=== PATIENT | female | born 1995 | race Caucasian/White ===

== ENCOUNTER 2017-12-31 18:27 | Inpatient (IN) ==
[2017-12-31] MEDS ORDERED: *HR* FentaNYL (PF) 100 MCG/2 ML VIAL IVP ONE ×2 (18:43→20:05)
[2017-12-31] MEDS ORDERED: Ondansetron 4 MG/2 ML VIAL IVP ONE (18:43)
[2017-12-31] MEDS ORDERED: 0.9 % Sodium Chloride 1,000 ML IVC ONE (18:43)
--- NOTE | 2017-12-31 18:47 | Emergency Department Note ---
Disposition Clinical Impression: Pyelonephritis Disposition: Admitted As Inpatient Condition: Good Forms: ED Satisfaction Letter, Work/School Release Time of Disposition: 20:16 General Adult HPI - General Chief complaint: ED General Medical Stated complaint: UTI, worsening pain Time Seen by Provider: 12/31/17 18:35 Source: patient, family Limitations: no limitations - History of Present Illness HPI Narrative: History of present illness: 2-year-old female who presents the emergency department with flank pain and fever and unable to keep her medicine down. Patient has had pyelonephritis in the past. She was seen last night in the emergency department at [facility]. She said "he did not really give me the time to listen to me". They put her on antibiotics and sent her home. She said she has been able to keep anything down. She was prescribed Cipro. Patient states her fevers have been Tmax 104.5 and have not gone below 99. Patient says she is an 8 out of 10 pain and her nauseated. Denies shortness breath chest pain vaginal discharge headache photophobia or neck stiffness. Pain Scale: 9 - Related Data Home Medications Medication Instructions Recorded Confirmed Albuterol Sulfate [Albuterol 2 puff IH Q4HR PRN 12/31/17 12/31/17 Inhaler] Previous Rx's Medication Instructions Recorded Ciprofloxacin [Cipro] 500 mg PO BID #20 tablet 12/30/17 Ondansetron ODT [Zofran ODT] 4 mg SL Q6HR #10 tab.rapdis 12/30/17 Allergies Allergy/AdvReac Type Severity Reaction Status Date / Time Amoxicillin Allergy See Verified 08/30/17 15:35 Comments latex Allergy See Verified 08/30/17 15:35 Comments All systems ED: reviewed and negative except as stated. Constitutional: Reports: fever, chills Genitourinary: Reports: dysuria Musculoskeletal: Reports: back pain Past Medical History - Past Medical History Attestation: Yes The following information was validated with the patient. 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 - Social History Smoking Status: Current every day smoker Smokeless Tobacco Status: No Alcohol use: Reports: occasionally Drug use: Reports: none Physical Exam - General Limitations: no limitations General appearance: alert, in distress - Head Head exam: atraumatic, normocephalic - Eye Eye exam: Present: normal appearance, PERRL, EOMI - ENT ENT exam: normal exam, normal oropharynx - Neck Neck exam: Present: normal inspection, full ROM - Chest Chest inspection: Present: normal inspection, symmetric chest wall rise - Respiratory Respiratory exam: Present: normal lung sounds bilaterally - Cardiovascular Cardiovascular exam: Present: normal rhythm, tachycardia - Abdominal Exam Abdominal exam: Present: soft, Non-Tender - Extremities Exam Extremities exam: Present: normal inspection, full ROM - Expanded Lower Extremity Exam Neurovascular/Tendon exam: Present: normal capillary refill Gait: observed and normal - Back Exam Back exam: Present: normal inspection, full ROM, CVA tenderness (L). Absent: CVA tenderness (R) - Neurological Exam Neurological exam: Present: alert, oriented X3 - Psychiatric Psychiatric exam: Present: normal affect, normal mood - Skin Skin exam: Present: warm, dry, intact Course - Reevaluation(s) Reevaluation #1: Patient has left CVAT exquisitely. Is tachycardic at rest. Patient likely has pyelonephritis and is unable to keep her Cipro down. Patient will get screening labs noncontrast stone studies CT to exclude possibility of perinephric abscess be started on IV Rocephin be given fentanyl and Zofran and 1 L bolus. Admission anticipated, disposition pending Time: 18:47 Reevaluation #2: ED workup is complete. Abdominal pelvic CT noncontrast of her radiology shows perinephric stranding on the left consistent with pyelonephritis. Lactate level requested by hospitalist was within normal limits discussed the case with the hospitalist Dr. ABEBE. Patient was requested get 2 g IV Rocephin which is being given. Patient stable for admission. Time: 20:16 Vital Signs Temperature 99.2 F 12/31/17 18:28 Pulse Rate 123 12/31/17 18:28 Respiratory Rate 16 12/31/17 18:28 Blood Pressure 129/76 12/31/17 18:28 O2 Sat by Pulse Oximetry 96 12/31/17 18:28 Temperature 99.2 F 12/31/17 18:28 Pulse Rate 123 12/31/17 18:28 Respiratory Rate 16 12/31/17 18:28 Blood Pressure 129/76 12/31/17 18:28 O2 Sat by Pulse Oximetry 96 12/31/17 18:28 Oxygen Delivery Oxygen Delivery Room Air Medical Decision Making - Lab Data Result diagrams: 12/31/17 18:55 12/31/17 18:55 Lab Results 12/31/17 12/31/17 12/31/17 Range/Units 18:55 18:55 19:28 WBC 16.5 H (4.3-11.1) K/mcL RBC 4.42 (3.82-4.97) M/mcL Hgb 14.7 (11.5-15.4) g/dL Hct 41.9 (35.3-44.9) % MCV 94.8 (83.0-100.0) fL MCH 33.3 (28.0-33.3) pg MCHC 35.1 (31.6-35.5) g/dL RDW 12.4 (11.5-14.5) % Plt Count 337 (140-400) K/mcL MPV 9.1 L (9.4-12.4) fL Immature Gran % 0.5 (0-4) % Seg Neutrophils % 74.4 % Lymphocytes % 17.9 % Monocytes % 7.0 % Eosinophils % 0.0 % Basophils % 0.2 % Neutrophils # 12.3 H (1.6-8.9) K/mcL Lymphocytes # 3.0 (0.6-4.6) K/mcL Monocytes # 1.2 (0.0-1.3) K/mcL Eosinophils # 0.0 (0.0-0.6) K/mcL Basophils # 0.0 (0.0-0.2) K/mcL Sodium 132 L (136-145) mEq/L Potassium 3.4 L (3.5-5.1) mEq/L Chloride 97 L (98-107) mEq/L Carbon Dioxide 27 (23-29) mEq/L BUN 6 (6-20) mg/dL Creatinine 0.68 (0.60-1.20) mg/dL Est GFR ( Amer) > 60 (> 60) Est GFR (Non-Af Amer) > 60 (> 60) BUN/Creatinine Ratio 9 (6-26) Glucose 110 H (70-105) mg/dL Calculated Osmolality 272 L (280-300) Lactic Acid (0.5-2.2) mmol/L Calcium 9.0 (8.6-10.3) mg/dL Urine Color Yellow (Yellow) Urine Clarity Cloudy A (Clear) Urine pH 6.0 (5.0-8.0) pH Units Ur Specific [place] 1.011 (1.010-1.025) Urine Protein Trace (Neg-Trace) mg/dL Urine Glucose (UA) Normal (Normal) mg/dL Urine Ketones Negative (Negative) mg/dL Urine Blood Trace H (Negative) Urine Nitrite Negative (Negative) Urine Bilirubin Negative (Negative) Urine Urobilinogen 2.0 H (Normal) mg/dL Ur Leukocyte Esterase Small H (Negative) Urine Microscopic RBC 0-3 (0-3) per hpf Urine Microscopic WBC 15-30 H (0-3) per hpf Ur Squamous Epith Cells Many H (None-Few) per lpf Urine Bacteria Few (None-Few) per hpf Hyaline Casts None Seen (None-Few) per lpf 12/31/17 Range/Units 19:44 WBC (4.3-11.1) K/mcL RBC (3.82-4.97) M/mcL Hgb (11.5-15.4) g/dL Hct (35.3-44.9) % MCV (83.0-100.0) fL MCH (28.0-33.3) pg MCHC (31.6-35.5) g/dL RDW (11.5-14.5) % Plt Count (140-400) K/mcL MPV (9.4-12.4) fL Immature Gran % (0-4) % Seg Neutrophils % % Lymphocytes % % Monocytes % % Eosinophils % % Basophils % % Neutrophils # (1.6-8.9) K/mcL Lymphocytes # (0.6-4.6) K/mcL Monocytes # (0.0-1.3) K/mcL Eosinophils # (0.0-0.6) K/mcL Basophils # (0.0-0.2) K/mcL Sodium (136-145) mEq/L Potassium (3.5-5.1) mEq/L Chloride (98-107) mEq/L Carbon Dioxide (23-29) mEq/L BUN (6-20) mg/dL Creatinine (0.60-1.20) mg/dL Est GFR ( Amer) (> 60) Est GFR (Non-Af Amer) (> 60) BUN/Creatinine Ratio (6-26) Glucose (70-105) mg/dL Calculated Osmolality (280-300) Lactic Acid 0.5 (0.5-2.2) mmol/L Calcium (8.6-10.3) mg/dL Urine Color (Yellow) Urine Clarity (Clear) Urine pH (5.0-8.0) pH Units Ur Specific [place] (1.010-1.025) Urine Protein (Neg-Trace) mg/dL Urine Glucose (UA) (Normal) mg/dL Urine Ketones (Negative) mg/dL Urine Blood (Negative) Urine Nitrite (Negative) Urine Bilirubin (Negative) Urine Urobilinogen (Normal) mg/dL Ur Leukocyte Esterase (Negative) Urine Microscopic RBC (0-3) per hpf Urine Microscopic WBC (0-3) per hpf Ur Squamous Epith Cells (None-Few) per lpf Urine Bacteria (None-Few) per hpf Hyaline Casts (None-Few) per lpf
[2017-12-31 19:10] LABS: Basophils % 0.2 %; Hematocrit 41.9 % (35.3-44.9); Hemoglobin 14.7 g/dL (11.5-15.4); Immature Granulocytes % 0.5 % (0-4); Lymphocytes % 17.9 %; Mean Corpuscular HGB Conc 35.1 g/dL (31.6-35.5); Mean Corpuscular Hemoglobin 33.3 pg (28.0-33.3); Mean Corpuscular Volume 94.8 fL (83.0-100.0); Mean Platelet Volume 9.1 fL (9.4-12.4); Monocytes # 1.2 K/mcL (0.0-1.3); Neutrophils # 12.3 K/mcL (1.6-8.9); Platelet Count 337 K/mcL (140-400); Red Blood Count 4.42 M/mcL (3.82-4.97); Red Cell Distribution Width 12.4 % (11.5-14.5); Segmented Neutrophils % 74.4 %
[2017-12-31 19:25] LABS: BUN/Creatinine Ratio 9 (6-26); Blood Urea Nitrogen 6 mg/dL (6-20); Carbon Dioxide 27 mEq/L (23-29); Chloride 97 mEq/L (98-107); Glucose 110 mg/dL (70-105); Osmolality,Calculated 272 (280-300); Potassium 3.4 mEq/L (3.5-5.1); Sodium 132 mEq/L (136-145); eGFR For African Americans > 60 (> 60); eGFR For Non-African Americans > 60 (> 60)
[2017-12-31 19:39] LABS: Bilirubin,Urine Negative (Negative); Blood,Urine Trace (Negative); Clarity,Urine Cloudy (Clear); Color,Urine Yellow (Yellow); Glucose,Urine (UA) Normal (Normal); Ketones,Urine Negative (Negative); Leukocyte Esterase,Urine Small (Negative); Nitrite,Urine Negative (Negative); Protein,Urine Trace mg/dL (Neg-Trace); Specific Gravity,Urine 1.011 (1.010-1.025)
[2017-12-31 19:42] LABS: Hyaline Casts,Urine None Seen per lpf (None-Few); RBC,Urine 0-3 per hpf (0-3); Squamous Epithelial Cell,Urine Many per lpf (None-Few); WBC,Urine 15-30 per hpf (0-3)
[2017-12-31 19:54] LABS: Bacteria,Urine Few per hpf (None-Few)
[2017-12-31] MEDS ORDERED: cefTRIAXone 2,000 MG in Water for inj. (sterile) 20 ML 20 ML IVP ONE (20:15)
[2017-12-31] MEDS ORDERED: Naloxone 0.4 MG/ML INJ IVP PRN (20:22)
[2017-12-31] MEDS ORDERED: Acetaminophen 325 MG TABLET PO PRN (20:22)
--- NOTE | 2017-12-31 20:26 | Internal Med History&Physical ---
Date of Encounter: 12/31/17 Time of Encounter: 20:24 Assessment and Plan (1) Sepsis Current visit: Yes Status: Acute Patient meets criteria with leukocytosis, tachycardia and pyelonephritis. Normal lactic acid. We will treat as below. Qualifiers: Sepsis type: sepsis due to unspecified organism Qualified Code(s): A41.9 - Sepsis, unspecified organism (2) Pyelonephritis Current visit: Yes Status: Acute Start ceftriaxone. Collect blood cultures before. Follow-up on urine cultures. IV fluids with normal saline. PRN Zofran. Pain control. (3) Hypokalemia Current visit: Yes Status: Acute We will give 40 of IV potassium and check in the morning. Stemming from vomiting. (4) Nausea & vomiting Current visit: Yes Status: Acute We will treat symptomatically. Qualifiers: Vomiting type: unspecified Vomiting Intractability: unspecified Qualified Code(s): R11.2 - Nausea with vomiting, unspecified (5) Tobacco abuse Current visit: Yes Status: Acute Nicotine patch (6) DVT prophylaxis Current visit: Yes Status: Acute Lovenox subcutaneous Internal Medicine - H&P: HPI Chief complaint: Nausea vomiting Admitted From: Emergency Dept Plans for Post Hospital Care: Home History of present illness: Ms. Prather is a 22 year old female with history of asthma and tobacco abuse who presents with continuous nausea vomiting and inability to keep oral intake down. Patient was seen in the emergency department yesterday with a high fever up to 104 and was diagnosed with a urinary tract infection and discharged on Cipro. Patient was unable to keep food down and has been dealing with significant nausea and vomiting for the last 2-3 days. She reports dysuria as well as urinary frequency and brown discoloration to her urine. She presented to the emergency department and workup showed a WBC count of 16.5. Potassium was 3.4. A urinalysis was done which came back with negative nitrites although yesterday was positive. There was small leukocyte esterase today and it was large yesterday. WBCs were too numerous to count yesterday and 15-30 today. The patient underwent a CT abdomen and pelvis without contrast showing signs of pyelonephritis on the right. The patient has a history of UTI with cultures previously growing Proteus that was mostly pansensitive except to Macrobid. The patient denies any headache, blurry vision, chest pain, shortness of breath , abdominal pain, numbness, tingling, weakness. Past Med Surg Social Fam HX - Past Medical History Medical history: asthma Psychiatric history: anxiety - Social History Smoking Status: Current every day smoker Smokeless Tobacco Status: No Alcohol use: occasionally Drug use: none - Family History Mother Adopted: [place]: Amanda Prather Age: 53 Family Member Ethnicity: Non- Living Status: Still Living Hx Family Genitourinary Disorders: Yes (kidney stones, gallstones) Hx Family Endocrine Disorder: Yes (Graves disease thyroid) Hx Family Autoimmune Disorders: Yes (Rheumatoid Arthritis fibromyalgia) Father History Unknown: Yes Adopted: [place]: Norman Lorenzana Family Member Ethnicity: Internal Medicine - H&P: Meds Ciprofloxacin [Cipro] 500 mg PO BID #20 tablet 12/30/17 [Rx] Ondansetron ODT [Zofran ODT] 4 mg SL Q6HR #10 tab.rapdis 12/30/17 [Rx] Albuterol Sulfate [Albuterol Inhaler] 2 puff IH Q4HR PRN 12/31/17 [History] 3 Allergy/AdvReac Type Severity Reaction Status Date / Time Amoxicillin Allergy See Verified 08/30/17 15:35 Comments latex Allergy See Verified 08/30/17 15:35 Comments All Systems PM: A 10-system review of systems was performed and is negative for pertinent findings except as documented above in the HPI. Review of systems: All systems reviewed are negative except for as mentioned above - Constitutional Vitals: Temp Pulse Resp BP Pulse Ox 99.2 F 123 16 129/76 96 12/31/17 18:28 12/31/17 18:28 12/31/17 18:28 12/31/17 18:28 12/31/17 18:28 Exam: GEN: NAD HEENT: AT, NC, No cyanosis, oral mucosa is moist, No JVD Lymphatics: No lymphadenoapthy Eyes: Extrocular muscles intact, anicteric CVS:RRR. S1, S2, No m/r/g RESP: CTAB ABD: Soft, NT, ND, +BS EXT: No edema, No rashes, 2+ DP. Right costovertebral angle tenderness. NEURO: Nonfocal, CN II-XII intact, No focal motor or sensory deficits Psych: Cooperative, Not anxious or depressedl Internal Med - H&P Results - Labs CBC & Chem 7: 12/31/17 18:55 12/31/17 18:55 Labs: Short CBC 12/31/17 Range/Units 18:55 WBC 16.5 H (4.3-11.1) K/mcL Hgb 14.7 (11.5-15.4) g/dL Hct 41.9 (35.3-44.9) % Plt Count 337 (140-400) K/mcL Neutrophils # 12.3 H (1.6-8.9) K/mcL BMP 12/31/17 18:55 Sodium 132 L Potassium 3.4 L Chloride 97 L Carbon Dioxide 27 BUN 6 Creatinine 0.68 Glucose 110 H Calcium 9.0 Urine 12/31/17 Range/Units 19:28 Urine Color Yellow (Yellow) Urine Clarity Cloudy A (Clear) Urine pH 6.0 (5.0-8.0) pH Units Ur Specific [place] 1.011 (1.010-1.025) Urine Protein Trace (Neg-Trace) mg/dL Urine Glucose (UA) Normal (Normal) mg/dL - Impressions ITS Impressions Abdomen/Pelvis CT 12/31/17 18:43 IMPRESSION: 1. Mild infiltration of the right perinephric fat. The finding is nonspecific but can be seen with pyelonephritis. Additional evaluation is limited by the lack of intravenous contrast. 2. Otherwise unremarkable noncontrast CT of the abdomen and pelvis. No evidence of obstructive uropathy. No CT evidence of appendicitis. 3. Physiologic free fluid in the pelvis. D/ / 12/31/2017 20:05:53 Dru Jessica MD / kade Interpreting Provider: Dru Jessica MD
[2017-12-31] MEDS ORDERED: Potassium Chloride 40 MEQ, Lidocaine 1% 2 ML in D5% in Water 500 ML IVPB ONE (20:28)
[2017-12-31] MEDS: Nicotine 21 MG PATCH.TD24 TD SCH (22:05)
[2017-12-31] MEDS: *HR* HYDROcodone/Acet 5/325 mg TABLET PO PRN (22:05)
[2017-12-31] MEDS: 0.9 % Sodium Chloride 1,000 ML IVC SCH (22:06)
[2018-01-01] MEDS: *HR* HYDROcodone/Acet 5/325 mg TABLET PO PRN ×3 (05:09→13:37)
[2018-01-01] MEDS: *HR* Enoxaparin 40 MG/0.4 ML SYRINGE SQ SCH (05:10)
[2018-01-01] MEDS: 0.9 % Sodium Chloride 1,000 ML IVC SCH ×3 (05:11→21:13)
[2018-01-01 05:43] LABS: Basophils % 0.2 %; Eosinophils % 0.2 %; Hematocrit 38.5 % (35.3-44.9); Immature Granulocytes % 0.5 % (0-4); Lymphocytes % 24.7 %; Mean Corpuscular HGB Conc 33.8 g/dL (31.6-35.5); Mean Corpuscular Hemoglobin 32.8 pg (28.0-33.3); Mean Corpuscular Volume 97.2 fL (83.0-100.0); Mean Platelet Volume 9.3 fL (9.4-12.4); Monocytes # 1.1 K/mcL (0.0-1.3); Monocytes % 8.7 %; Platelet Count 303 K/mcL (140-400); Red Blood Count 3.96 M/mcL (3.82-4.97); Red Cell Distribution Width 12.7 % (11.5-14.5); Segmented Neutrophils % 65.7 %
[2018-01-01 06:04] LABS: BUN/Creatinine Ratio 8 (6-26); Blood Urea Nitrogen 5 mg/dL (6-20); Calcium 8.2 mg/dL (8.6-10.3); Carbon Dioxide 26 mEq/L (23-29); Chloride 108 mEq/L (98-107); Glucose 94 mg/dL (70-105); Magnesium 1.9 mg/dL (1.6-2.6); Osmolality,Calculated 281 (280-300); Sodium 137 mEq/L (136-145); eGFR For African Americans > 60 (> 60); eGFR For Non-African Americans > 60 (> 60)
[2018-01-01] MEDS: cefTRIAXone 1,000 MG in Water for inj. (sterile) 20 ML 10 ML IVP SCH (09:08)
[2018-01-01] MEDS: Nicotine 21 MG PATCH.TD24 TD SCH (09:09)
[2018-01-01] MEDS: Ondansetron 4 MG/2 ML VIAL IVP PRN ×3 (09:15→22:35)
[2018-01-01] MEDS ORDERED: Acetaminophen 325 MG TABLET PO PRN (15:50)
--- NOTE | 2018-01-01 16:20 | Internal Med Progress Note ---
Date of Encounter: 01/01/18 Time of Encounter: 16:18 - Assessment and plan (1) Sepsis Current Visit: Yes Status: Acute Assessment and plan: Patient meets criteria with leukocytosis, tachycardia and pyelonephritis. Normal lactic acid. Continue Rocephin Followup blood cultures Qualifiers: Sepsis type: sepsis due to unspecified organism Qualified Code(s): A41.9 - Sepsis, unspecified organism (2) Pyelonephritis Current Visit: Yes Status: Acute (3) Hypokalemia Current Visit: Yes Status: Acute (4) Nausea & vomiting Current Visit: Yes Status: Acute Assessment and plan: Zofran prn add compazine for breakthrough Qualifiers: Vomiting type: unspecified Vomiting Intractability: unspecified Qualified Code(s): R11.2 - Nausea with vomiting, unspecified (5) Tobacco abuse Current Visit: Yes Status: Acute (6) DVT prophylaxis Current Visit: Yes Status: Acute - Subjective Interval history: No complaints, no acute events. - Constitutional Vitals: Temp Pulse Resp BP Pulse Ox 99.0 F 82 14 134/90 100 01/01/18 14:41 01/01/18 14:41 01/01/18 14:41 01/01/18 14:41 01/01/18 14:41 - Head Head exam: Present: atraumatic, normocephalic - Eye Eye exam: Present: PERRL, conjuntiva pink, sclera anicteric Pupils: Present: PERRL - Neck Neck exam general surgery: Present: supple, trachea midline. Absent: lymphadenopathy - Respiratory Respiratory exam: Present: CTAB. Absent: accessory muscle use, rales, rhonchi, wheezes - Cardiovascular Cardiovascular exam: Present: RRR, +S1, +S2. Absent: diastolic murmur, gallop, rubs, systolic murmur - GI/Abdominal GI/Abdominal exam: Present: normal bowel sounds, soft, no peritoneal signs. Absent: distended, tenderness - Extremities Exam Extremities exam: Present: warm, radial pulses palpable and symmetrical. Absent : calf tenderness, cyanotic, pedal edema - Neurological Exam Neurological exam: Present: CN II-XII intact, oriented X3, no focal deficits. Absent: pronater drift, facial droop, speech deficit - Skin Skin exam: Present: dry, intact Internal Medicine: Result - Labs CBC & Chem 7: 01/01/18 04:57 01/01/18 04:57 Labs: Short CBC 01/01/18 Range/Units 04:57 WBC 12.2 H (4.3-11.1) K/mcL Hgb 13.0 D (11.5-15.4) g/dL Hct 38.5 (35.3-44.9) % Plt Count 303 (140-400) K/mcL Neutrophils # 8.0 (1.6-8.9) K/mcL BMP 01/01/18 04:57 Sodium 137 Potassium 4.0 Chloride 108 H Carbon Dioxide 26 BUN 5 L Creatinine 0.59 L Glucose 94 Calcium 8.2 L Consult Discharge Plan - Plan Referrals: Dodie Mayorga MD [Primary Care Provider] -
[2018-01-01] MEDS: Ketorolac 30 MG/ML VIAL IVP PRN ×2 (16:23→22:36)
[2018-01-01] MEDS: OXYCODONE Oral CONC 10 MG/0.5 ML ORAL.SYG SL PRN (19:49)
[2018-01-02] MEDS: Prochlorperazine 10 MG/2 ML VIAL IVP PRN ×2 (01:25→15:33)
[2018-01-02] MEDS: 0.9 % Sodium Chloride 1,000 ML IVC SCH ×2 (05:03→13:15)
[2018-01-02] MEDS: *HR* Enoxaparin 40 MG/0.4 ML SYRINGE SQ SCH (05:04)
[2018-01-02] MEDS: OXYCODONE Oral CONC 10 MG/0.5 ML ORAL.SYG SL PRN ×3 (05:05→20:33)
[2018-01-02] MEDS: Nicotine 21 MG PATCH.TD24 TD SCH (09:12)
[2018-01-02] MEDS: Ondansetron 4 MG/2 ML VIAL IVP PRN (09:12)
[2018-01-02] MEDS: cefTRIAXone 1,000 MG in Water for inj. (sterile) 20 ML 10 ML IVP SCH (09:13)
[2018-01-02] MEDS: Ketorolac 30 MG/ML VIAL IVP PRN ×3 (09:16→23:41)
--- NOTE | 2018-01-02 09:27 | Internal Med Progress Note ---
Date of Encounter: 01/02/18 Time of Encounter: 09:25 - Assessment and plan (1) Pyelonephritis Current Visit: Yes Status: Acute Assessment and plan: Patient continues to have bilateral flank pain. Continue current antibiotics. Urine culture is ordered and pending. Patient has previously grown Proteus that is pansensitive. WBC count is improving. Continue Rocephin. Pain control. Continue antiemetics. Moderate risk for complications. (2) Sepsis Current Visit: Yes Status: Suspected Assessment and plan: Due to acute pyelonephritis. Blood cultures remain negative. WBC count is improving. MAXIMUM TEMPERATURE at 99.5 today. Qualifiers: Sepsis type: Escherichia coli Qualified Code(s): A41.51 - Sepsis due to Escherichia coli [E. coli] (3) Hypokalemia Current Visit: Yes Status: Acute Assessment and plan: Resolved (4) Nausea & vomiting Current Visit: Yes Status: Acute Assessment and plan: Continues to have nausea but wants to advance his diet. Continue antibiotics. Advance diet as tolerated. Qualifiers: Vomiting type: cyclical vomiting Vomiting Intractability: intractable Qualified Code(s): G43.A1 - Cyclical vomiting, intractable (5) Tobacco abuse Current Visit: Yes Status: Acute Assessment and plan: Continue nicotine patch (6) DVT prophylaxis Current Visit: Yes Status: Acute Assessment and plan: Continue Lovenox - Time Spent With Patient Total time spent is greater than 50% in coordination of care (as documented) at patient's floor/unit and/or counseling patient: - Subjective Interval history: Continues to have bilateral flank pain. Feels very hungry. Reports that she is unable to tolerate clear liquid diet as very salty. Would like to try more regular diet. - Constitutional Vitals: Temp Pulse Resp BP Pulse Ox 99.5 F 90 14 132/85 98 01/02/18 05:04 01/02/18 05:04 01/02/18 05:04 01/02/18 05:04 01/02/18 09:21 General appearance: Present: cooperative, mild distress, A&O X 3, answers questions appropriately - Respiratory Respiratory exam: Present: CTAB. Absent: accessory muscle use, rales, rhonchi, wheezes - Cardiovascular Cardiovascular exam: Present: RRR, +S1, +S2. Absent: diastolic murmur, gallop, rubs, systolic murmur - GI/Abdominal GI/Abdominal exam: Present: normal bowel sounds, soft, no peritoneal signs. Absent: distended, tenderness - Extremities Exam Extremities exam: Present: warm, radial pulses palpable and symmetrical. Absent : calf tenderness, cyanotic, pedal edema - Back Exam Back exam: Present: CVA tenderness (L), CVA tenderness (R) - Neurological Exam Neurological exam: Present: CN II-XII intact, oriented X3, no focal deficits. Absent: pronater drift, facial droop, speech deficit Internal Medicine: Result - Labs CBC & Chem 7: 01/01/18 04:57 01/01/18 04:57 Consult Discharge Plan - Plan Referrals: Dodie Mayorga MD [Primary Care Provider] -
[2018-01-02] MEDS: Ringers Solution, Lactated 1,000 ML IVC SCH (17:11)
[2018-01-03] MEDS: Ringers Solution, Lactated 1,000 ML IVC SCH ×3 (01:09→18:36)
[2018-01-03] MEDS: *HR* Enoxaparin 40 MG/0.4 ML SYRINGE SQ SCH (06:12)
[2018-01-03 06:30] LABS: Basophils % 0.3 %; Eosinophils # 0.1 K/mcL (0.0-0.6); Hematocrit 34.1 % (35.3-44.9); Hemoglobin 11.6 g/dL (11.5-15.4); Immature Granulocytes % 0.4 % (0-4); Lymphocytes % 29.5 %; Mean Corpuscular Hemoglobin 32.2 pg (28.0-33.3); Mean Corpuscular Volume 94.7 fL (83.0-100.0); Mean Platelet Volume 9.4 fL (9.4-12.4); Monocytes # 0.5 K/mcL (0.0-1.3); Monocytes % 6.7 %; Neutrophils # 4.2 K/mcL (1.6-8.9); Platelet Count 316 K/mcL (140-400); Red Cell Distribution Width 12.2 % (11.5-14.5); Segmented Neutrophils % 62.1 %
[2018-01-03] MEDS: cefTRIAXone 1,000 MG in Water for inj. (sterile) 20 ML 10 ML IVP SCH (09:30)
[2018-01-03] MEDS: Nicotine 21 MG PATCH.TD24 TD SCH (09:30)
[2018-01-03] MEDS: OXYCODONE Oral CONC 10 MG/0.5 ML ORAL.SYG SL PRN (11:33)
[2018-01-03] MEDS: Ondansetron 4 MG/2 ML VIAL IVP PRN (11:33)
--- NOTE | 2018-01-03 13:57 | Internal Med Progress Note ---
Date of Encounter: 01/03/18 Time of Encounter: 10:30 - Assessment and plan (1) Pyelonephritis Current Visit: Yes Status: Acute Assessment and plan: Patient admitted with acute pyelonephritis. Continues to have bilateral flank pain. Not tolerating diet well. Unable to take oral medications. Continue IV antibiotics for now. Continue antiemetics. Urine culture does not show any significant growth. Moderate risk for complications. (2) Sepsis Current Visit: Yes Status: Acute Assessment and plan: Due to acute pyelonephritis. No organism growing in blood. Continue current antibiotics. Qualifiers: Sepsis type: sepsis due to unspecified organism Qualified Code(s): A41.9 - Sepsis, unspecified organism (3) Hypokalemia Current Visit: Yes Status: Resolved (4) Nausea & vomiting Current Visit: Yes Status: Acute Assessment and plan: continue antiemetics. Advance diet as tolerated. Qualifiers: Vomiting type: cyclical vomiting Vomiting Intractability: intractable Qualified Code(s): G43.A1 - Cyclical vomiting, intractable (5) Tobacco abuse Current Visit: Yes Status: Acute Assessment and plan: Nicotine patch (6) DVT prophylaxis Current Visit: Yes Status: Acute Assessment and plan: Continue Lovenox - Time Spent With Patient Total time spent is greater than 50% in coordination of care (as documented) at patient's floor/unit and/or counseling patient: - Subjective Interval history: Patient continues to have nausea and was not able to tolerate advancing diet yesterday. Is now back on liquid diet. Continues to have bilateral flank pain although it is somewhat improved compared to yesterday. No fever or chills reported overnight. - Constitutional Vitals: Temp Pulse Resp BP Pulse Ox 98.5 F 74 15 137/90 98 01/03/18 10:36 01/03/18 10:36 01/03/18 10:36 01/03/18 10:36 01/03/18 10:36 General appearance: Present: cooperative, mild distress, A&O X 3, answers questions appropriately - Eye Eye exam: Present: EOMI, PERRL, conjuntiva pink, sclera anicteric - Respiratory Respiratory exam: Present: CTAB. Absent: accessory muscle use, rales, rhonchi, wheezes - Cardiovascular Cardiovascular exam: Present: RRR, +S1, +S2. Absent: diastolic murmur, gallop, rubs, systolic murmur - GI/Abdominal GI/Abdominal exam: Present: normal bowel sounds, soft, no peritoneal signs. Absent: distended, tenderness - Extremities Exam Extremities exam: Present: warm, radial pulses palpable and symmetrical. Absent : calf tenderness, cyanotic, pedal edema - Back Exam Back exam: Present: CVA tenderness (L), CVA tenderness (R), paraspinal tenderness - Neurological Exam Neurological exam: Present: alert, CN II-XII intact, oriented X3, no focal deficits. Absent: facial droop, speech deficit - Skin Skin exam: Present: dry, intact Internal Medicine: Result - Labs CBC & Chem 7: 01/03/18 06:05 01/01/18 04:57 Labs: Short CBC 01/03/18 Range/Units 06:05 WBC 6.8 (4.3-11.1) K/mcL Hgb 11.6 (11.5-15.4) g/dL Hct 34.1 L (35.3-44.9) % Plt Count 316 (140-400) K/mcL Neutrophils # 4.2 (1.6-8.9) K/mcL Consult Discharge Plan - Plan Referrals: Dodie Mayorga MD [Primary Care Provider] - 01/10/18 1:40 pm
[2018-01-03 14:25] VITALS: BP 125/84
[2018-01-03] MEDS: Ketorolac 30 MG/ML VIAL IVP PRN (15:37)
--- NOTE | 2018-01-03 18:33 | Discharge Summary ---
- NOTES TO OUTPATIENT PROVIDER Notes to Outpatient Provider: Treated for sepsis from acute pyelonephritis Date of Encounter: 01/03/18 Time of Encounter: 18:31 - Discharge Diagnosis (1) Sepsis Priority: Primary Status: Acute Qualifiers: Sepsis type: sepsis due to unspecified organism Qualified Code(s): A41.9 - Sepsis, unspecified organism (2) Pyelonephritis Priority: Secondary Status: Acute (3) Hypokalemia Priority: Secondary Status: Resolved (4) Nausea & vomiting Priority: Secondary Status: Resolved Qualifiers: Vomiting type: cyclical vomiting Vomiting Intractability: intractable Qualified Code(s): G43.A1 - Cyclical vomiting, intractable (5) Tobacco abuse Priority: Secondary Status: Acute (6) DVT prophylaxis Priority: Secondary Status: Acute Hospital course: Ms. Prather is a 22 year old female patient with a history of tobacco abuse was hospitalized here with sepsis related to acute pyelonephritis. She was treated with IV antibiotics. She had been having intractable nausea and vomiting associated with her symptoms and required IV medications to help treat her symptoms. Her symptoms have now improved and she is tolerating oral diet. She is stable to be discharged on oral antibiotics to complete treatment course for acute pyelonephritis. She is continues to have bilateral CVA tenderness but it is improving. She had negative blood cultures and urine cultures. As such she will be treated empirically with Omnicef because she did not tolerate ciprofloxacin as outpatient. Discharge discussed with: patient, nurse - Time Spent with Patient Total time spent providing and/or coordinating discharge services: Less than 30 minutes (25 min) - Discharge Medications Prescriptions: Ibuprofen [Motrin] 800 mg PO Q8HR PRN #30 tablet PRN Reason: Moderate Pain Cefdinir [Omnicef] 300 mg PO BID #20 capsule Home Medications: Ondansetron ODT [Zofran ODT] 4 mg SL Q6HR #10 tab.rapdis 12/30/17 [Rx] Albuterol Sulfate [Albuterol Inhaler] 2 puff IH Q4HR PRN 12/31/17 [History] Cefdinir [Omnicef] 300 mg PO BID #20 capsule 01/03/18 [Rx] Ibuprofen [Motrin] 800 mg PO Q8HR PRN #30 tablet 01/03/18 [Rx] Allergies/Adverse Reactions: 3 Allergy/AdvReac Type Severity Reaction Status Date / Time Amoxicillin Allergy See Verified 08/30/17 15:35 Comments latex Allergy See Verified 08/30/17 15:35 Comments Date of admission: 01/01/18 03:10 Primary care physician: Dodie Mayorga MD Discharging clinician: Hussain Danielle Anticipated date of discharge: 01/03/18 - Constitutional Vitals: Temp Pulse Resp BP Pulse Ox 98.0 F 61 14 125/84 98 01/03/18 14:22 01/03/18 14:22 01/03/18 14:22 01/03/18 14:22 01/03/18 14:22 General appearance: Present: cooperative, A&O X 3, no acute distress, answers questions appropriately - Respiratory Respiratory exam: Present: CTAB. Absent: accessory muscle use, rales, rhonchi, wheezes - Cardiovascular Cardiovascular exam: Present: RRR, +S1, +S2. Absent: diastolic murmur, gallop, rubs, systolic murmur - Extremities Exam Extremities exam: Present: warm, radial pulses palpable and symmetrical. Absent : calf tenderness, cyanotic, pedal edema - Back Exam Back exam: Present: CVA tenderness (L), CVA tenderness (R) - Patient Status Disposition: Home, Self-Care Condition: Good Functional capacity at discharge: independent ambulation Overall status at discharge: patient is back to baseline - Discharge Instructions Instructions: Urinary Tract Infection in Women (DC), Sepsis (DC) Follow Up With: Dodie Mayorga MD [Primary Care Provider] - 01/10/18 1:40 pm - Diet and Activity Activity: increase activity as tolerated Diet: advance to your usual diet
== END 2018-01-03 19:03 | disposition home or self-care (01) | DRG 720 ==
LOC: EMEROO 18:27 → 3ANU 18:27 → SUATTDRO 01-01 03:10
PROVIDERS: ADMIT Internal Medicine; ATTEND Internal Medicine

== ENCOUNTER 2018-01-30 21:30 | Inpatient (IN) ==
--- NOTE | 2018-01-30 22:16 | Emergency Department Note ---
Disposition Clinical Impression: Pyelonephritis, Vomiting, Sepsis Disposition: Admitted As Inpatient Referrals: Dodie Mayorga MD [Primary Care Provider] - Forms: ED Satisfaction Letter, Work/School Release General Adult HPI - General Chief complaint: ED Abdominal Pain Stated complaint: back/side pain Time Seen by Provider: 01/30/18 22:04 Source: patient Limitations: no limitations - History of Present Illness HPI Narrative: 22-year-old female recently admitted and discharged for pyelonephritis reports emergency department complaining of dysuria suprapubic discomfort and bilateral flank pain worse on the right. She states after she was discharged was unable to afford her medications. She reports recurrent vomiting today with high fevers. She took Advil before coming in. There is no history of vaginal discharge or significant bleeding she just finished her period. There is no history of back trauma chest pain shortness of breath no history of weakness or numbness in arms or legs rashes or bloody emesis. She describes recurrent emesis. There is no history of syncope. The patient denies any history of diabetes. She thinks her kidney infection is coming back. She reports she was diagnosed with sepsis prior. She states she has had recurrent endometriosis, she is status post remote appendectomy. She has no definitive history of kidney stones. Pain Scale: 8 - Related Data Home Medications Medication Instructions Recorded Confirmed Albuterol Sulfate [Albuterol 2 puff IH Q4HR PRN 12/31/17 01/30/18 Inhaler] Allergies Allergy/AdvReac Type Severity Reaction Status Date / Time Amoxicillin Allergy See Verified 01/30/18 21:33 Comments latex Allergy See Verified 01/30/18 21:33 Comments All systems ED: reviewed and negative except as stated. Past Medical History - Past Medical History Medical history: Reports: asthma Psychiatric history: Reports: anxiety [employer] history: Reports: endometriosis - Social History Smoking Status: Current every day smoker Smokeless Tobacco Status: No Alcohol use: Reports: occasionally Drug use: Reports: none Physical Exam - General Limitations: no limitations General appearance: alert, in no apparent distress - Head Head exam: atraumatic, normocephalic, normal inspection - Eye Eye exam: Present: normal appearance, PERRL, EOMI - ENT ENT exam: normal exam, normal oropharynx, mucous membranes moist - Neck Neck exam: Present: normal inspection, full ROM, trachea midline - Chest Chest inspection: Present: symmetric chest wall rise. Absent: tenderness, rash - Respiratory Respiratory exam: Present: normal lung sounds bilaterally. Absent: respiratory distress, wheezes, stridor, accessory muscle use, prolonged expiratory phase - Cardiovascular Cardiovascular exam: Present: normal rhythm, tachycardia - Abdominal Exam Abdominal exam: Present: soft, tenderness. Absent: distention, guarding, rebound, rigidity, normal bowel sounds, diminished bowel sounds Abdominal tenderness: Present: suprapubic, moderate - Extremities Exam Extremities exam: Present: normal inspection, full ROM, normal capillary refill. Absent: tenderness, pedal edema, joint swelling, calf tenderness - Expanded Lower Extremity Exam Lower leg exam: Absent: Homans' sign Neurovascular/Tendon exam: Present: normal capillary refill. Absent: motor deficit, sensory deficit, tendon deficit, extremity cold to touch, pallor - Back Exam Back exam: Present: normal inspection, full ROM, CVA tenderness (R), CVA tenderness (L). Absent: tenderness, vertebral tenderness - Neurological Exam Neurological exam: Present: alert, oriented X3, CN II-XII intact. Absent: motor sensory deficit - Psychiatric Psychiatric exam: Present: normal affect, normal mood - Skin Skin exam: Present: warm, dry, intact, normal color Course Vital Signs Temperature 99.2 F 01/30/18 21:33 Pulse Rate 137 01/30/18 21:33 Respiratory Rate 17 01/30/18 21:33 Blood Pressure 122/80 01/30/18 21:33 O2 Sat by Pulse Oximetry 98 01/30/18 21:33 Temperature 99.2 F 01/30/18 21:33 Pulse Rate 137 01/30/18 21:33 Respiratory Rate 17 01/30/18 21:33 Blood Pressure 122/80 01/30/18 21:33 O2 Sat by Pulse Oximetry 99 01/30/18 22:09 Oxygen Delivery Oxygen Delivery Room Air Medical Decision Making - [facility] Narrative Medical decision making narrative: The patient's urinalysis shows significant abnormalities, her recent urine culture showed Proteus mirabilis with multiple sensitivities occluding ciprofloxacin. The patient is amoxicillin allergic. IV fluid was ordered in the ED as well as ciprofloxacin IV, fentanyl, Zofran. The patient's previous CT revealed pyelonephritis. The patient's heart rate is 137, she has an elevated white count and a source for infection, she appears to meet SIRS/sepsis criteria, further laboratory studies are pending including lactic acid chem basic LFT lipase and blood cultures. A fluid bolus of 2 L was ordered, the patient states she took Motrin prior to arrival which may be masking a fever. Based on the patient's SIRS/ sepsis, and recurrent infection with clinical findings strongly suggestive of pyelonephritis, in association with recurrent vomiting, I thought it would be appropriate to admit the patient to the hospital. The patient is highly agreeable. I reviewed the case with the hospitalist on-call who has accepted the patient to their care. Further laboratory results are pending. It is shift change, Dr. Cordero is aware of the patient's condition and will intervene if necessary. - Lab Data Lab results reviewed: Yes I reviewed the patient's lab results. Result diagrams: 01/30/18 22:10 Lab Results 01/30/18 01/30/18 01/30/18 Range/Units 22:02 22:02 22:10 WBC 12.6 H (4.3-11.1) K/mcL RBC 4.65 (3.82-4.97) M/mcL Hgb 14.9 (11.5-15.4) g/dL Hct 42.3 (35.3-44.9) % MCV 91.0 (83.0-100.0) fL MCH 32.0 (28.0-33.3) pg MCHC 35.2 (31.6-35.5) g/dL RDW 13.5 (11.5-14.5) % Plt Count 220 (140-400) K/mcL MPV 9.3 L (9.4-12.4) fL Immature Gran % 0.3 (0-4) % Seg Neutrophils % 83.8 % Lymphocytes % 10.6 % Monocytes % 4.9 % Eosinophils % 0.2 % Basophils % 0.2 % Neutrophils # 10.5 H (1.6-8.9) K/mcL Lymphocytes # 1.3 (0.6-4.6) K/mcL Monocytes # 0.6 (0.0-1.3) K/mcL Eosinophils # 0.0 (0.0-0.6) K/mcL Basophils # 0.0 (0.0-0.2) K/mcL Lactic Acid (0.5-2.2) mmol/L Urine Color Dark Yellow (Yellow) Urine Clarity Turbid A (Clear) Urine pH 6.0 (5.0-8.0) pH Units Ur Specific [place] 1.028 H (1.010-1.025) Urine Protein 100 H (Neg-Trace) mg/dL Urine Glucose (UA) Normal (Normal) mg/dL Urine Ketones 15 H (Negative) mg/dL Urine Blood Large H (Negative) Urine Nitrite Negative (Negative) Urine Bilirubin Small H (Negative) Urine Urobilinogen Normal (Normal) mg/dL Ur Leukocyte Esterase Large H (Negative) Urine Microscopic RBC 15-30 H (0-3) per hpf Urine Microscopic WBC TNTC H (0-3) per hpf Ur Squamous Epith Cells Many H (None-Few) per lpf Urine Bacteria Many H (None-Few) per hpf Hyaline Casts Test Not Performed Ur Culture Indicated? NO. A (NO) Urine Test Negative (Negative) 01/30/18 Range/Units 22:10 WBC (4.3-11.1) K/mcL RBC (3.82-4.97) M/mcL Hgb (11.5-15.4) g/dL Hct (35.3-44.9) % MCV (83.0-100.0) fL MCH (28.0-33.3) pg MCHC (31.6-35.5) g/dL RDW (11.5-14.5) % Plt Count (140-400) K/mcL MPV (9.4-12.4) fL Immature Gran % (0-4) % Seg Neutrophils % % Lymphocytes % % Monocytes % % Eosinophils % % Basophils % % Neutrophils # (1.6-8.9) K/mcL Lymphocytes # (0.6-4.6) K/mcL Monocytes # (0.0-1.3) K/mcL Eosinophils # (0.0-0.6) K/mcL Basophils # (0.0-0.2) K/mcL Lactic Acid 1.3 (0.5-2.2) mmol/L Urine Color (Yellow) Urine Clarity (Clear) Urine pH (5.0-8.0) pH Units Ur Specific [place] (1.010-1.025) Urine Protein (Neg-Trace) mg/dL Urine Glucose (UA) (Normal) mg/dL Urine Ketones (Negative) mg/dL Urine Blood (Negative) Urine Nitrite (Negative) Urine Bilirubin (Negative) Urine Urobilinogen (Normal) mg/dL Ur Leukocyte Esterase (Negative) Urine Microscopic RBC (0-3) per hpf Urine Microscopic WBC (0-3) per hpf Ur Squamous Epith Cells (None-Few) per lpf Urine Bacteria (None-Few) per hpf Hyaline Casts Ur Culture Indicated? (NO) Urine Test (Negative) - Radiology Data Radiology results reviewed: Yes I reviewed the patient's radiology results.
[2018-01-30 22:19] LABS: Bilirubin,Urine Small (Negative); Blood,Urine Large (Negative); Clarity,Urine Turbid (Clear); Color,Urine Dark Yellow (Yellow); Glucose,Urine (UA) Normal (Normal); Ketones,Urine 15 mg/dL (Negative); Leukocyte Esterase,Urine Large (Negative); Nitrite,Urine Negative (Negative); Protein,Urine 100 mg/dL (Neg-Trace); Specific Gravity,Urine 1.028 (1.010-1.025); Urobilinogen,Urine Normal (Normal)
[2018-01-30 22:20] LABS: Bacteria,Urine Many per hpf (None-Few); RBC,Urine 15-30 per hpf (0-3); Squamous Epithelial Cell,Urine Many per lpf (None-Few); WBC,Urine TNTC per hpf (0-3)
[2018-01-30] MEDS ORDERED: Ondansetron 4 MG/2 ML VIAL IVP ONE (22:21)
[2018-01-30] MEDS ORDERED: *HR* FentaNYL (PF) 100 MCG/2 ML VIAL IVP ONE (22:21)
[2018-01-30 22:27] LABS: Basophils % 0.2 %; Eosinophils % 0.2 %; Hematocrit 42.3 % (35.3-44.9); Hemoglobin 14.9 g/dL (11.5-15.4); Immature Granulocytes % 0.3 % (0-4); Lymphocytes # 1.3 K/mcL (0.6-4.6); Lymphocytes % 10.6 %; Mean Corpuscular HGB Conc 35.2 g/dL (31.6-35.5); Mean Platelet Volume 9.3 fL (9.4-12.4); Monocytes # 0.6 K/mcL (0.0-1.3); Monocytes % 4.9 %; Neutrophils # 10.5 K/mcL (1.6-8.9); Platelet Count 220 K/mcL (140-400); Red Blood Count 4.65 M/mcL (3.82-4.97); Red Cell Distribution Width 13.5 % (11.5-14.5); Segmented Neutrophils % 83.8 %
[2018-01-30] MEDS ORDERED: 0.9 % Sodium Chloride 1,000 ML IVC SCH (22:30)
[2018-01-30 22:50] LABS: Alanine Aminotransferase 7 Units/L (7-52); Albumin 4.4 g/dL (3.5-5.7); Albumin/Globulin Ratio 1.5 (1.1-2.2); Alkaline Phosphatase 87 Units/L (34-104); Amylase 34 Units/L (29-103); Aspartate Amino Transferase 15 Units/L (13-39); BUN/Creatinine Ratio 17 (6-26); Bilirubin,Direct 0.1 mg/dL (0.0-0.2); Bilirubin,Indirect 0.7 mg/dL (0.0-1.2); Bilirubin,Total 0.8 mg/dL (0.3-1.0); Blood Urea Nitrogen 10 mg/dL (6-20); C-Reactive Protein 113 mg/L (Less than 10); Calcium 9.4 mg/dL (8.6-10.3); Carbon Dioxide 23 mEq/L (23-29); Chloride 101 mEq/L (98-107); Glucose 113 mg/dL (70-105); Lipase 13 Units/L (11-82); Osmolality,Calculated 282 (280-300); Potassium 3.5 mEq/L (3.5-5.1); Sodium 136 mEq/L (136-145); Total Protein 7.4 g/dL (6.4-8.9); eGFR For African Americans > 60 (> 60); eGFR For Non-African Americans > 60 (> 60)
[2018-01-30] MEDS ORDERED: *HR* LORazepam 0.5 MG TABLET PO ONE (23:08)
[2018-01-30] MEDS ORDERED: *HR* OxyCODONE/APAP 5/325 TABLET PO ONE (23:08)
[2018-01-30] MEDS ORDERED: Naloxone 0.4 MG/ML INJ IVP PRN (23:28)
--- NOTE | 2018-01-30 23:33 | Internal Med History&Physical ---
Date of Encounter: 01/30/18 Time of Encounter: 23:00 Internal Medicine - H&P: HPI Chief complaint: Nausea, vomiting Admitted From: Emergency Dept Plans for Post Hospital Care: Home History of present illness: Ms. Prather is a 22 year old female with h/o- recurrent UTIs, presents with c/o- persistent nausea and emesis and inability to keep any food down since yesterday. Patient was treated for pyelonephritis and UTI about 4 weeks ago, and discharged on PO Omnicef, which she never got filled as she could not afford it. She presents with similar c/o- 1-day h/o- persistent nausea, vomiting , pain in both her flank, along with suprapubic pain, burning micturition, fever and chills. No hematuria, pyuria, abdominal pain, chest pain. Past Med Surg Social Fam HX - Past Medical History Source: patient Medical history: asthma Psychiatric history: anxiety - Past Surgical History Surgical History: appendectomy, , other (endometrial ablation) - Social History Smoking Status: Current every day smoker Packs per day: 1 Smokeless Tobacco Status: No Alcohol use: occasionally Drug use: none Occupational status: unemployed Current living situation: Home, With Family Activity Level: Independent ambulation Recent Out of Country Travel Within the Last 8 Weeks: No Exposure or Possible Exposure to Illness During Travel: No - Family History Mother Adopted: No Family Member Ethnicity: Non- Living Status: Still Living Hx Family Endocrine Disorder: Yes (Graves disease thyroid) Hx Family Autoimmune Disorders: Yes (Rheumatoid Arthritis fibromyalgia) Father Adopted: No Family Member Ethnicity: Internal Medicine - H&P: Meds Albuterol Sulfate [Albuterol Inhaler] 2 puff IH Q4HR PRN 12/31/17 [History] 3 Allergy/AdvReac Type Severity Reaction Status Date / Time Amoxicillin Allergy See Verified 01/30/18 21:33 Comments latex Allergy See Verified 01/30/18 21:33 Comments All Systems PM: A 10-system review of systems was performed and is negative for pertinent findings except as documented above in the HPI. - Constitutional Constitutional: chills, fever(s), weakness, no night sweats - EENT Eyes: no change in vision, no discharge, no pain, no photophobia Ears: no ear discharge, no ear pain, no tinnitus Nose, mouth and throat: no dysphagia, no nasal discharge, no neck pain, no sore throat - Cardiovascular Cardiovascular ROS IM: no chest pain, no diaphoresis, no dyspnea, no lightheadedness, no palpitations, no syncope - Respiratory Respiratory: no cough, no dyspnea, no wheezing, no excessive phlegm production - Gastrointestinal Gastrointestinal: nausea, vomiting - Genitourinary Genitourinary: as per HPI, urinary urgency - Musculoskeletal Musculoskeletal ROS IM: no numbness, no tingling - Integumentary Integumentary IM: no rash, no unusual bruising - Neurological Neurological ROS: no confusion, no convulsions, no focal weakness, no numbness, no tingling, no tremor(s) - Hematologic/Lymphatic Hematologic/Lymphatic: no easy bruising - Constitutional Vitals: Temp Pulse Resp BP Pulse Ox 99.2 F 120 20 139/79 99 01/30/18 21:33 01/30/18 22:54 01/30/18 23:26 01/30/18 23:26 01/30/18 22:54 General appearance: Present: A&O X 3, answers questions appropriately - Respiratory Respiratory exam: Present: CTAB. Absent: accessory muscle use, rales, rhonchi, wheezes - Cardiovascular Cardiovascular exam: Present: RRR, +S1, +S2, tachycardia. Absent: diastolic murmur, gallop, rubs, systolic murmur - GI/Abdominal GI/Abdominal exam: Present: normal bowel sounds, soft (tenderness to light palpation in suprapubic and LLQ), no peritoneal signs. Absent: distended, tenderness - Extremities Exam Extremities exam: Present: full ROM, warm, radial pulses palpable and symmetrical. Absent: calf tenderness, cyanotic, pedal edema - Neurological Exam Neurological exam: Present: CN II-XII intact, oriented X3, no focal deficits. Absent: pronater drift, facial droop, speech deficit - Skin Skin exam: Present: dry, intact Internal Med - H&P Results - Labs CBC & Chem 7: 01/30/18 22:10 01/30/18 22:10 - Assessment and plan (1) Pyelonephritis Current Visit: Yes Status: Suspected Assessment and plan: Based on clinical presentation; no CT is done at this time, consider if no improvement in symptoms. Continue IV antibiotics and f/up blood and urine cultures. (2) Sepsis Current Visit: Yes Status: Acute Assessment and plan: presents with fever at home, tachycardia and mild leukocytosis; patient apparently took Motrin just prior to presentation, which may be masking fever here; reportedly 102 at home. Start IV Rocephin, continue IV hydration; f/up blood and urine cultures; urine culture from 2017 grew pansensitive E.coli; PRN antiemetics; pain control with PRN Tramadol. Qualifiers: Sepsis type: sepsis due to unspecified organism Qualified Code(s): A41.9 - Sepsis, unspecified organism (3) Asthma Current Visit: Yes Status: Chronic Assessment and plan: continue PRN bronchodilators; Qualifiers: Asthma severity: mild Asthma persistence: intermittent Asthma complication type: unspecified Qualified Code(s): J45.20 - Mild intermittent asthma, uncomplicated (4) Tobacco abuse Current Visit: Yes Status: Chronic Assessment and plan: Nicotine transdermal patch; - Time Spent With Patient Total time spent is greater than 50% in coordination of care (as documented) at patient's floor/unit and/or counseling patient:
[2018-01-31] MEDS: traMADol 50 MG TABLET PO PRN ×2 (00:29→08:04)
[2018-01-31] MEDS: cefTRIAXone 2,000 MG in Water for inj. (sterile) 20 ML 20 ML IVP SCH ×2 (01:09→23:16)
[2018-01-31] MEDS: Nicotine 21 MG PATCH.TD24 TD SCH ×2 (01:10→08:04)
[2018-01-31] MEDS: *HR* Heparin 5,000 UNIT/ML VIAL SQ SCH ×4 (01:10→23:10)
[2018-01-31] MEDS: Ringers Solution, Lactated 1,000 ML IVC SCH ×2 (01:11→10:53)
[2018-01-31] MEDS: Ketorolac 30 MG/ML VIAL IVP PRN ×3 (04:00→18:59)
[2018-01-31 04:47] LABS: Basophils % 0.2 %; Eosinophils % 0.2 %; Hematocrit 36.7 % (35.3-44.9); Immature Granulocytes % 0.4 % (0-4); Lymphocytes # 1.7 K/mcL (0.6-4.6); Lymphocytes % 17.4 %; Mean Corpuscular HGB Conc 34.6 g/dL (31.6-35.5); Mean Corpuscular Hemoglobin 32.8 pg (28.0-33.3); Mean Corpuscular Volume 94.8 fL (83.0-100.0); Mean Platelet Volume 9.4 fL (9.4-12.4); Monocytes # 0.5 K/mcL (0.0-1.3); Monocytes % 5.2 %; Neutrophils # 7.3 K/mcL (1.6-8.9); Platelet Count 195 K/mcL (140-400); Red Blood Count 3.87 M/mcL (3.82-4.97); Red Cell Distribution Width 13.5 % (11.5-14.5); Segmented Neutrophils % 76.6 %
[2018-01-31 04:58] LABS: Hemoglobin 12.7 g/dL (11.5-15.4)
[2018-01-31 05:02] LABS: BUN/Creatinine Ratio 12 (6-26); Blood Urea Nitrogen 7 mg/dL (6-20); Calcium 7.9 mg/dL (8.6-10.3); Carbon Dioxide 26 mEq/L (23-29); Chloride 107 mEq/L (98-107); Glucose 96 mg/dL (70-105); Osmolality,Calculated 284 (280-300); Potassium 3.8 mEq/L (3.5-5.1); Sodium 138 mEq/L (136-145); eGFR For African Americans > 60 (> 60); eGFR For Non-African Americans > 60 (> 60)
[2018-01-31] MEDS: Ondansetron 4 MG/2 ML VIAL IVP PRN (05:26)
[2018-01-31] MEDS ORDERED: *HR* LORazepam 0.5 MG TABLET PO ONE (07:55)
--- NOTE | 2018-01-31 10:03 | Internal Med Progress Note ---
<Joana Guzman - Last Filed: 01/31/18 10:00> Date of Encounter: 01/31/18 Time of Encounter: 10:00 - Assessment and plan (1) Pyelonephritis Current Visit: Yes Status: Suspected Assessment and plan: Pyelonephritis based on clinical presentation and recent history of pyelonephritis 4 weeks ago with UTI. She was discharged with omniceph if however she did not fill it. No CT of abdomen at this time due to having CT 4 weeks ago demonstrating right pyelonephritis. urine culture 08/2017 grew Proteus sensitive to Rocephin) Urinalysis leukocyte esterase positive WBC WNL, afebrile -Continue Rocephin day 2 -urine culture pending -Toradol and tramadol for pain -IVF 100 (2) Sepsis Current Visit: Yes Status: Acute Assessment and plan: Resolved. Leukocytosis, tachycardia at admission. Patient reported having a fever of wanted to at home. -blood culture pending Qualifiers: Sepsis type: sepsis due to unspecified organism Qualified Code(s): A41.9 - Sepsis, unspecified organism (3) Tobacco abuse Current Visit: Yes Status: Chronic Assessment and plan: Patient smokes 1ppd/ 3yrs counseled on smoking cessation nicotine patches ordered (4) Asthma Current Visit: Yes Status: Chronic Assessment and plan: History of asthma with albuterol inhaler as needed Qualifiers: Asthma severity: mild Asthma persistence: intermittent Asthma complication type: unspecified Qualified Code(s): J45.20 - Mild intermittent asthma, uncomplicated - Time Spent With Patient Total time spent is greater than 50% in coordination of care (as documented) at patient's floor/unit and/or counseling patient: - Subjective Interval history: 22F PMH asthma and recurrent urinary tract infections who presented to [facility] complaining of dysuria and nausea and vomiting. 4 weeks ago she was treated for PAL nephritis and UTI was discharged with oral on Omniceph which she never filled due to inability to afford it. Upon my examination she is alert and oriented times 3 and no acute distress. She denies nausea, vomiting, fever, chills. She reports suprapubic and bilateral back pain. - Constitutional Vitals: Temp Pulse Resp BP Pulse Ox 98.5 F 62 14 117/53 95 01/31/18 07:35 01/31/18 07:35 01/31/18 07:35 01/31/18 07:35 01/31/18 07:35 General appearance: Present: A&O X 3, answers questions appropriately Exam: Gen.: Vitals noted. No acute distress. AAOx3 HEENT: oropharynx clear, Normocephalic, atraumatic Cardiac: RRR, no murmur, +S1/S2 Pulmonary: CTA bilaterally, no wheezes, rales or rhonchi, equal chest expansion Abdomen: soft, suprapubic tender, Bowel sounds noted, no guarding Back: bilateral CVA tenderness worsen the right MSK: ROM intact, no joint swelling noted Extremities: no BLE edema, nontender calf, no cyanosis or clubbing Neuro: A&Ox3, moves all extremities, no focal deficits Psych: Appropriate mood and behavior Internal Medicine: Result - Labs CBC & Chem 7: 01/31/18 03:59 01/31/18 03:59 Labs: Short CBC 01/31/18 Range/Units 03:59 WBC 9.5 (4.3-11.1) K/mcL Hgb 12.7 D (11.5-15.4) g/dL Hct 36.7 (35.3-44.9) % Plt Count 195 (140-400) K/mcL Neutrophils # 7.3 (1.6-8.9) K/mcL BMP 01/31/18 03:59 Sodium 138 Potassium 3.8 Chloride 107 Carbon Dioxide 26 BUN 7 Creatinine 0.59 L Glucose 96 Calcium 7.9 L Consult Discharge Plan - Plan Referrals: Dodie Mayorga MD [Primary Care Provider] - 02/08/18 12:40 pm (Please bring your ID, Insurance card and co-pay. Thank you) <Stephan Win - Last Filed: 01/31/18 16:00> Date of Encounter: 01/31/18 - Assessment and plan (1) Acute pyelonephritis Current Visit: Yes Status: Suspected (2) Pyelonephritis Current Visit: Yes Status: Suspected (3) Sepsis Current Visit: Yes Status: Acute Qualifiers: Sepsis type: sepsis due to unspecified organism Qualified Code(s): A41.9 - Sepsis, unspecified organism (4) Tobacco abuse Current Visit: Yes Status: Chronic (5) Asthma Current Visit: Yes Status: Chronic Qualifiers: Asthma severity: mild Asthma persistence: intermittent Asthma complication type: unspecified Qualified Code(s): J45.20 - Mild intermittent asthma, uncomplicated - Time Spent With Patient Total time spent is greater than 50% in coordination of care (as documented) at patient's floor/unit and/or counseling patient: - Constitutional Vitals: Temp Pulse Resp BP Pulse Ox 98.8 F 102 14 116/77 96 01/31/18 14:15 01/31/18 14:15 01/31/18 14:15 01/31/18 14:15 01/31/18 14:15 Internal Medicine: Result - Labs CBC & Chem 7: 01/31/18 03:59 01/31/18 03:59 Labs: Short CBC 01/31/18 Range/Units 03:59 WBC 9.5 (4.3-11.1) K/mcL Hgb 12.7 D (11.5-15.4) g/dL Hct 36.7 (35.3-44.9) % Plt Count 195 (140-400) K/mcL Neutrophils # 7.3 (1.6-8.9) K/mcL BMP 01/31/18 03:59 Sodium 138 Potassium 3.8 Chloride 107 Carbon Dioxide 26 BUN 7 Creatinine 0.59 L Glucose 96 Calcium 7.9 L - Attending Attestation I examined this patient and my medical decision-making was reviewed with the Resident Physician on 01/31/18. I agree with the documented findings, disposition and treatment plan as described except to the extent set forth below. Ms. Prather is currently admitted for sepsis related to acute pyleonephritis. She remains moderate to high risk due to potential for worsening clinical status. Ms Prather is complaining of pain. Says she has not slept in 48 hours. Had fever earlier. Some nausea. Exam Alert Mod distress - tearful. Mucus membranes dry Heart reg No wheeze Abd soft I/P 1. Sepsis - improving 2. Probable acute pyelo Cultures pending Further diagnoses and plan as above.
[2018-01-31] MEDS: Acetaminophen 325 MG TABLET PO PRN ×2 (10:51→20:06)
[2018-01-31] MEDS ORDERED: traMADol 50 MG TABLET PO PRN (13:37)
[2018-01-31] MEDS ORDERED: *HR* LORazepam 0.5 MG TABLET PO PRN (14:03)
[2018-01-31] MEDS: OXYCODONE Oral CONC 10 MG/0.5 ML ORAL.SYG SL PRN ×2 (16:25→23:11)
[2018-01-31] MEDS ORDERED: *HR* FentaNYL (PF) 100 MCG/2 ML VIAL IVP ONE (20:29)
[2018-02-01] MEDS: Ondansetron 4 MG/2 ML VIAL IVP PRN ×3 (00:16→18:51)
[2018-02-01] MEDS: Ketorolac 30 MG/ML VIAL IVP PRN ×2 (04:45→16:18)
--- NOTE | 2018-02-01 08:09 | Internal Med Progress Note ---
<Joana Guzman - Last Filed: 02/01/18 08:04> Date of Encounter: 02/01/18 Time of Encounter: 07:45 - Assessment and plan (1) Sepsis Current Visit: Yes Status: Acute Assessment and plan: Resolved. Leukocytosis, tachycardia at admission. Patient reported having a fever of wanted to at home. -blood culture pending Qualifiers: Sepsis type: sepsis due to unspecified organism Qualified Code(s): A41.9 - Sepsis, unspecified organism (2) Tobacco abuse Current Visit: Yes Status: Chronic Assessment and plan: Patient smokes 1ppd/ 3yrs counseled on smoking cessation nicotine patches ordered (3) Asthma Current Visit: Yes Status: Chronic Assessment and plan: History of asthma with albuterol inhaler as needed Qualifiers: Asthma severity: mild Asthma persistence: intermittent Asthma complication type: unspecified Qualified Code(s): J45.20 - Mild intermittent asthma, uncomplicated (4) Acute pyelonephritis Current Visit: Yes Status: Suspected Assessment and plan: Pyelonephritis based on clinical presentation and recent history of pyelonephritis 4 weeks ago with UTI. She was discharged with omniceph if however she did not fill it. No CT of abdomen at this time due to having CT 4 weeks ago demonstrating right pyelonephritis. urine culture 08/2017 grew Proteus sensitive to Rocephin) Urinalysis leukocyte esterase positive WBC WNL, afebrile however fever of 100.4 overnight -Continue Rocephin day 3 -urine culture pending then will discharge on appropriate antibiotic -social work is going to pay for medication since patient is unlikely to fill it -Toradol and oxycodone for pain - Time Spent With Patient Total time spent is greater than 50% in coordination of care (as documented) at patient's floor/unit and/or counseling patient: - Subjective Interval history: 22F PMH asthma and recurrent urinary tract infections who presented to [facility] complaining of dysuria and nausea and vomiting. 4 weeks ago she was treated for PAL nephritis and UTI was discharged with oral on Omniceph which she never filled due to inability to afford it. Upon my examination she is alert and oriented times 3 and no acute distress. She reported she vomited last night and that she still has suprapubic and back tenderness. She denies nausea, vomiting, fever, chills. She is requesting more pain medication and feels that the oxycodone is not helping much. - Constitutional Vitals: Temp Pulse Resp BP Pulse Ox 98.8 F 87 18 135/89 99 02/01/18 06:45 02/01/18 06:45 02/01/18 06:45 02/01/18 06:45 02/01/18 06:45 General appearance: Present: A&O X 3, answers questions appropriately Exam: Gen.: Vitals noted. No acute distress. AAOx3 HEENT: oropharynx clear, Normocephalic, atraumatic Cardiac: RRR, no murmur, +S1/S2 Pulmonary: CTA bilaterally, no wheezes, rales or rhonchi, equal chest expansion Abdomen: soft, minimal suprapubic tender, Bowel sounds noted, no guarding Back: bilateral CVA tender MSK: ROM intact, no joint swelling noted Extremities: no BLE edema, nontender calf, no cyanosis or clubbing Neuro: A&Ox3, moves all extremities, no focal deficits Psych: Appropriate mood and behavior Internal Medicine: Result - Labs CBC & Chem 7: 01/31/18 03:59 01/31/18 03:59 Consult Discharge Plan - Plan Referrals: Dodie Mayorga MD [Primary Care Provider] - 02/08/18 12:40 pm (Please bring your ID, Insurance card and co-pay. Thank you) <Stephan Win - Last Filed: 02/01/18 15:05> Date of Encounter: 02/01/18 - Assessment and plan (1) Acute pyelonephritis Current Visit: Yes Status: Suspected (2) Sepsis Current Visit: Yes Status: Resolved Qualifiers: Sepsis type: sepsis due to unspecified organism Qualified Code(s): A41.9 - Sepsis, unspecified organism (3) Tobacco abuse Current Visit: Yes Status: Chronic (4) Asthma Current Visit: Yes Status: Chronic Qualifiers: Asthma severity: mild Asthma persistence: intermittent Asthma complication type: unspecified Qualified Code(s): J45.20 - Mild intermittent asthma, uncomplicated - Time Spent With Patient Total time spent is greater than 50% in coordination of care (as documented) at patient's floor/unit and/or counseling patient: - Constitutional Vitals: Temp Pulse Resp BP Pulse Ox 98.5 F 102 18 116/83 99 02/01/18 14:35 02/01/18 14:35 02/01/18 14:35 02/01/18 14:35 02/01/18 14:35 Internal Medicine: Result - Labs CBC & Chem 7: 01/31/18 03:59 01/31/18 03:59 - Attending Attestation I examined this patient and my medical decision-making was reviewed with the Resident Physician on 02/01/18. I agree with the documented findings, disposition and treatment plan as described except to the extent set forth below. Ms Prather is currently admitted for acute pyelonephritis. She remains moderate to high risk due to potential for worsening clinical status. Ms Prather is still complaining of pain. Had low grade temp last night - none now. Some nausea as well. No diarrhea. Exam alert Comfortable at this time. Mucus membranes dry Not tachycardic No wheeze I/P 1. Acute pyelo - blood cx neg thus far. Urine cx pending. Continue same abx. Anticipate discharge in next 1-2 days Further diagnoses and plan as above.
[2018-02-01] MEDS: Nicotine 21 MG PATCH.TD24 TD SCH (08:15)
[2018-02-01] MEDS: *HR* Heparin 5,000 UNIT/ML VIAL SQ SCH ×2 (08:15→16:18)
[2018-02-01] MEDS: OXYCODONE Oral CONC 10 MG/0.5 ML ORAL.SYG SL PRN ×2 (11:54→18:05)
[2018-02-01] MEDS ORDERED: Ketorolac 30 MG/ML VIAL IVP PRN (18:42)
[2018-02-01] MEDS ORDERED: Isovue-370 500 ML INFUS..BTL IV ONE (18:42)
[2018-02-01] MEDS ORDERED: OXYCODONE Oral CONC 10 MG/0.5 ML ORAL.SYG SL PRN (18:42)
[2018-02-01] MEDS ORDERED: Acetaminophen 325 MG TABLET PO PRN (18:42)
[2018-02-02] MEDS: cefTRIAXone 2,000 MG in Water for inj. (sterile) 20 ML 20 ML IVP SCH ×2 (00:17→18:01)
[2018-02-02] MEDS: OXYCODONE Oral CONC 10 MG/0.5 ML ORAL.SYG SL PRN ×2 (00:18→09:31)
[2018-02-02] MEDS: *HR* Heparin 5,000 UNIT/ML VIAL SQ SCH ×3 (00:18→16:40)
--- NOTE | 2018-02-02 09:00 | Internal Med Progress Note ---
<Joana Guzman - Last Filed: 02/02/18 08:58> Date of Encounter: 02/02/18 Time of Encounter: 08:58 - Assessment and plan (1) Sepsis Current Visit: Yes Status: Resolved Assessment and plan: Resolved. Leukocytosis, tachycardia at admission. Patient reported having a fever of wanted to at home. -blood culture negative Qualifiers: Sepsis type: sepsis due to unspecified organism Qualified Code(s): A41.9 - Sepsis, unspecified organism (2) Tobacco abuse Current Visit: Yes Status: Chronic Assessment and plan: Patient smokes 1ppd/ 3yrs counseled on smoking cessation nicotine patches ordered (3) Asthma Current Visit: Yes Status: Chronic Assessment and plan: History of asthma with albuterol inhaler as needed Qualifiers: Asthma severity: mild Asthma persistence: intermittent Asthma complication type: unspecified Qualified Code(s): J45.20 - Mild intermittent asthma, uncomplicated (4) DVT prophylaxis Current Visit: No Status: Acute Assessment and plan: heparin SQ (5) Acute pyelonephritis Current Visit: Yes Status: Suspected Assessment and plan: Pyelonephritis based on clinical presentation and recent history of pyelonephritis 4 weeks ago with UTI. She was discharged with omniceph if however she did not fill it. No CT of abdomen at this time due to having CT 4 weeks ago demonstrating right pyelonephritis. urine culture 08/2017 grew Proteus sensitive to Rocephin) Urinalysis leukocyte esterase positive WBC WNL, afebrile Abdominal CT demonstrated right pyelonephritis and possible developing abscess. -Continue Rocephin day 4 -urology consulted, recommendations appreciated. After review of CT they do not believe there is an abscess -urine culture: GNR may discharge patient today -social work is going to pay for medication since patient is unlikely to fill it -Toradol and oxycodone for pain - Time Spent With Patient Total time spent is greater than 50% in coordination of care (as documented) at patient's floor/unit and/or counseling patient: - Subjective Interval history: 22F PMH asthma and recurrent urinary tract infections who presented to [facility] complaining of dysuria and nausea and vomiting. 4 weeks ago she was treated for PAL nephritis and UTI was discharged with oral on Omniceph which she never filled due to inability to afford it. Upon my examination she is alert and oriented times 3 and no acute distress. She reported that she still has suprapubic and back tendernessin some nausea. She denies vomiting, fever, chills. overnight she had increased suprapubic in so abdominal CTwas ordered nd she was given higher dose of oxycodone. - Constitutional Vitals: Temp Pulse Resp BP Pulse Ox 98.8 F 93 14 134/90 100 02/02/18 06:34 02/02/18 06:34 02/02/18 06:34 02/02/18 06:34 02/02/18 06:34 General appearance: Present: A&O X 3, answers questions appropriately Exam: Gen.: Vitals noted. No acute distress. AAOx3 HEENT: oropharynx clear, Normocephalic, atraumatic Cardiac: RRR, no murmur, +S1/S2 Pulmonary: CTA bilaterally, no wheezes, rales or rhonchi, equal chest expansion Abdomen: soft, minimal suprapubic tender, Bowel sounds noted, no guarding Back: bilateral CVA tender MSK: ROM intact, no joint swelling noted Extremities: no BLE edema, nontender calf, no cyanosis or clubbing Neuro: A&Ox3, moves all extremities, no focal deficits Psych: Appropriate mood and behavior Internal Medicine: Result - Labs CBC & Chem 7: 01/31/18 03:59 01/31/18 03:59 - Impressions Impressions Abdomen/Pelvis CT 02/01/18 21:15 IMPRESSION: Findings in the kidneys described above are most consistent with acute pyelonephritis primarily involving the lower pole of the right kidney measuring up to 3.5 cm. There is a possible developing abscess in this region and close follow-up is recommended. D/ / Norman Hall MD / Norman Hall MD Interpreting Provider: Norman Hall MD Consult Discharge Plan - Plan Instructions: Asthma (DC), Urinary Tract Infection in Women (DC), Sepsis (DC) Additional Instructions: Finish antibiotic to completion take pain medication as needed follow-up with Dr. Patel of urology outpatient in 1 to 2 Referrals: Nicolas Patel MD [Partnered Physician] - (WEB REQUEST ENTERED. OFFICE WILL CALL WITH APPOINTMENT) Dodie Mayorga MD [Primary Care Provider] - 02/08/18 12:40 pm (Please bring your ID, Insurance card and co-pay. Thank you) Prescriptions: Cefdinir [Omnicef] 300 mg PO BID #25 capsule clonazePAM [Klonopin] 0.5 mg PO BID PRN 7 Days #14 tablet PRN Reason: Anxiety Oxycodone HCl/Acetaminophen [Percocet 5-325 mg Tablet] 1 each PO Q6H PRN 3 Days #10 tablet PRN Reason: Severe Pain <Stephan Win - Last Filed: 02/02/18 17:44> Date of Encounter: 02/02/18 - Assessment and plan (1) Sepsis Current Visit: Yes Status: Resolved Qualifiers: Sepsis type: sepsis due to unspecified organism Qualified Code(s): A41.9 - Sepsis, unspecified organism (2) DVT prophylaxis Current Visit: No Status: Acute (3) Tobacco abuse Current Visit: Yes Status: Chronic (4) Asthma Current Visit: Yes Status: Chronic Qualifiers: Asthma severity: mild Asthma persistence: intermittent Asthma complication type: unspecified Qualified Code(s): J45.20 - Mild intermittent asthma, uncomplicated (5) Acute pyelonephritis Current Visit: Yes Status: Suspected - Time Spent With Patient Total time spent is greater than 50% in coordination of care (as documented) at patient's floor/unit and/or counseling patient: - Constitutional Vitals: Temp Pulse Resp BP Pulse Ox 98.9 F 75 14 120/80 99 02/02/18 15:14 02/02/18 15:14 02/02/18 15:14 02/02/18 15:14 02/02/18 15:14 Internal Medicine: Result - Labs CBC & Chem 7: 01/31/18 03:59 01/31/18 03:59 - Impressions Impressions Abdomen/Pelvis CT 02/01/18 21:15 IMPRESSION: Findings in the kidneys described above are most consistent with acute pyelonephritis primarily involving the lower pole of the right kidney measuring up to 3.5 cm. There is a possible developing abscess in this region and close follow-up is recommended. D/ / Norman Hall MD / Norman Hall MD Interpreting Provider: Norman Hall MD - Attending Attestation I examined this patient and my medical decision-making was reviewed with the Resident Physician on 02/02/18. I agree with the documented findings, disposition and treatment plan as described except to the extent set forth below. Please see discharge summary of this date.
[2018-02-02] MEDS: Nicotine 21 MG PATCH.TD24 TD SCH (09:27)
[2018-02-02 15:15] VITALS: BP 120/80
--- NOTE | 2018-02-02 16:19 | Urology - Consult Note ---
Date of Encounter: 02/02/18 Time of Encounter: 16:17 - Assessment and Plan (1) Renal abscess, right Current Visit: Yes Status: Acute Assessment and plan: I believe the patient's abscess on her right kidney is very early. No obvious fluid collection. At this point I would recommend to continue with IV antibiotics at least one more dose. She can then be discharged on culture specific antibiotics for at least 2 weeks. She will need follow-up with me in 2 -3 weeks. (2) Pyelonephritis Current Visit: Yes Status: Suspected Assessment and plan: Patient currently on culture specific antibiotics. Continue by mouth antibiotics for 2 weeks. I did voice my concern to the patient that she did not take her antibiotics last time and that this most likely led to her readmission and she stated that she will get her antibiotics filled and take them as directed. (3) Recurrent urinary tract infection Current Visit: Yes Status: Acute Assessment and plan: At this time I am unsure of the cause of her recurrent infections. Patient will likely need a VCUG as an outpatient. This is especially because she started with her infections at an early age. At this point it does not appear that the patient has any scarring in her kidneys on the CT scan. But given recent renal abscess we will need to figure out as best we can she keeps having recurrent infections. Urology CN:HPI Consult date: 02/02/18 Reason for consult Urology: Other (right possible renal abscess) Requesting physician: Joana Guzman History of present illness: Margarita is a 22-year-old female who was admitted to the hospital secondary to pyelonephritis. Patient had been admitted 1 month ago for similar diagnosis but failed to complete outpatient course of antibiotics secondary to lack of money to pay for the antibiotics. Patient now present back to the hospital secondary to severe right-sided flank pain. She had fever early on. Urine cultures return Escherichia coli which was resistant to multiple antibiotics. Patient has clinically improved but last evening patient had a CT scan performed secondary to increasing abdominal pain which revealed possible early right renal abscess in the lower pole. Patient states that pain has improved. She has received 3 total doses of Rocephin. Patient states that she has had problems with recurrent infections ever since she was [age] years old. She has never been evaluated by urologist in the past. No known VCUG performed. Past Med Surg Social Fam HX - Past Medical History Medical history: asthma Psychiatric history: anxiety - Past Surgical History Surgical History: appendectomy, other - Social History Smoking Status: Current every day smoker Packs per day: 1 Smokeless Tobacco Status: No Alcohol use: occasionally Drug use: none - Family History Mother Adopted: No Family Member Ethnicity: Non- Living Status: Still Living Hx Family Endocrine Disorder: Yes (Graves disease thyroid) Hx Family Autoimmune Disorders: Yes (Rheumatoid Arthritis fibromyalgia) Father Adopted: No Family Member Ethnicity: Medications and Allergies Albuterol Sulfate [Albuterol Inhaler] 2 puff IH Q4HR PRN 12/31/17 [History] Cefdinir [Omnicef] 300 mg PO BID #25 capsule 02/02/18 [Rx] Nicotine Patch [Nicoderm] 21 mg TD DAILY patch.td24 02/02/18 [Rx] Oxycodone HCl/Acetaminophen [Percocet 5-325 mg Tablet] 1 each PO Q6H PRN 3 Days #10 tablet 02/02/18 [Rx] clonazePAM [Klonopin] 0.5 mg PO BID PRN 7 Days #14 tablet 02/02/18 [Rx] 3 Allergy/AdvReac Type Severity Reaction Status Date / Time Amoxicillin Allergy See Verified 01/30/18 21:33 Comments latex Allergy See Verified 01/30/18 21:33 Comments Review of Systems - Constitutional no chills, no fever(s) - EENT Nose, mouth and throat: no dizziness - Cardiovascular no chest pain - Respiratory no cough - Gastrointestinal abdominal pain - Genitourinary Genitourinary: flank pain, no dysuria - Musculoskeletal back pain - Integumentary no erythema, no swelling - Neurological no confusion, no weakness - Psychiatric no anxiety, no confusion - Hematologic/Lymphatic no easy bleeding, no lymphadenopathy - Allergic/Immunologic no throat swelling, no wheezing Exam Initial Vital Signs Temp Pulse Resp BP Pulse Ox 99.2 F 137 17 122/80 98 01/30/18 21:33 01/30/18 21:33 01/30/18 21:33 01/30/18 21:33 01/30/18 21:33 General/Neuological: alert and oriented x 3 Eyes: normal pupils, non-icteric Neck: no lymphadenopathy noted, supple to touch Cardiovascular: Regular rate and rhythm, no JVD, no aortic distention on exam. Respiratory: Clear to auscultation bilaterally, no wheezing ABD: soft, nontender, no masses palpated, good bowel sounds Back: no pain on percussion bilaterally Skin: no rashes noted,not clammy Musculoskeletal: normal gait, FROMx4 Urology Results - Labs 01/31/18 03:59 01/31/18 03:59 Abnormal lab results Creatinine 0.59 mg/dL (0.60-1.20) L 01/31/18 03:59 Calcium 7.9 mg/dL (8.6-10.3) L 01/31/18 03:59 C-Reactive Protein 113 mg/L (Less than 10) H 01/30/18 22:10 Urine Clarity Turbid (Clear) A 01/30/18 22:02 Ur Specific Virgil 1.028 (1.010-1.025) H 01/30/18 22:02 Urine Protein 100 mg/dL (Neg-Trace) H 01/30/18 22:02 Urine Ketones 15 mg/dL (Negative) H 01/30/18 22:02 Urine Blood Large (Negative) H 01/30/18 22:02 Urine Bilirubin Small (Negative) H 01/30/18 22:02 Ur Leukocyte Esterase Large (Negative) H 01/30/18 22:02 Urine Microscopic RBC 15-30 per hpf (0-3) H 01/30/18 22:02 Urine Microscopic WBC TNTC per hpf (0-3) H 01/30/18 22:02 Ur Squamous Epith Cells Many per lpf (None-Few) H 01/30/18 22:02 Urine Bacteria Many per hpf (None-Few) H 01/30/18 22:02 Ur Culture Indicated? NO. (NO) A 01/30/18 22:02 All other labs normal. - Imaging CT scan - abdomen: image reviewed CT scan - pelvis: image reviewed (Agree with radiologist diagnosis of possible early right renal abscess) Consult Discharge Plan - Plan Referrals: Dodie Mayorga MD [Primary Care Provider] - 02/08/18 12:40 pm (Please bring your ID, Insurance card and co-pay. Thank you) Prescriptions: Cefdinir [Omnicef] 300 mg PO BID #25 capsule clonazePAM [Klonopin] 0.5 mg PO BID PRN 7 Days #14 tablet PRN Reason: Anxiety Oxycodone HCl/Acetaminophen [Percocet 5-325 mg Tablet] 1 each PO Q6H PRN 3 Days #10 tablet PRN Reason: Severe Pain
--- NOTE | 2018-02-02 16:47 | Discharge Summary ---
<Joana Guzman - Last Filed: 02/02/18 16:53> Date of Encounter: 02/02/18 Time of Encounter: 16:45 - Discharge Diagnosis (1) Sepsis Priority: Secondary Status: Resolved Qualifiers: Sepsis type: sepsis due to unspecified organism Qualified Code(s): A41.9 - Sepsis, unspecified organism (2) Tobacco abuse Priority: Secondary Status: Chronic (3) Asthma Priority: Secondary Status: Chronic Qualifiers: Asthma severity: mild Asthma persistence: intermittent Asthma complication type: unspecified Qualified Code(s): J45.20 - Mild intermittent asthma, uncomplicated (4) DVT prophylaxis Priority: Secondary Status: Acute (5) Acute pyelonephritis Priority: Primary Status: Suspected Hospital course: Ms. Prather is a 22 year old female with h/o- recurrent UTIs and asthma presents with c/o- persistent nausea and emesis and inability to keep any food down since yesterday. Patient was treated for pyelonephritis and UTI about 4 weeks ago, and discharged on PO Omnicef, which she never got filled as she could not afford it. She presents with similar c/o- 1-day h/o- persistent nausea, vomiting , pain in both her flank, along with suprapubic pain, burning micturition, fever and chills. No hematuria, pyuria, abdominal pain, chest pain. She was admitted and started on Rocephin IV. Urine cultures were ordered. She was given IV fluids and pain medication. During her admission she had many complaints of nurses and fired a nurse due to being upset about food. She had complaints against her pain medication regimen. clerical administrator talked with the patient due to the patient posting negative comments on [employer]. During her admission one evening she reported increased back pain. Abdominal CT was ordered and demonstrated acute right pyelonephritis with possible developing abscess. Urology was then consulted and evaluated the patient and recommended to continue antibiotics for 2 weeks and follow up outpatient in 1 to 2 weeks. She was counseled on smoking cessation. Due to her inability to afford the antibiotics social work was able to pay for the antibiotic. She was given an appointment to follow up with urology. She was given prescriptions for pain medications. Upon discharge the patient was alert and oriented times 3 with full capacity and stated a clear understanding of the treatment and plan. Discharge discussed with: patient, nurse, social work Time spent discussing smoking cessation with patient: more than 10 minutes - Time Spent with Patient Total time spent providing and/or coordinating discharge services: Greater than 30 minutes - Discharge Medications Prescriptions: Cefdinir [Omnicef] 300 mg PO BID #25 capsule clonazePAM [Klonopin] 0.5 mg PO BID PRN 7 Days #14 tablet PRN Reason: Anxiety Oxycodone HCl/Acetaminophen [Percocet 5-325 mg Tablet] 1 each PO Q6H PRN 3 Days #10 tablet PRN Reason: Severe Pain Home Medications: Albuterol Sulfate [Albuterol Inhaler] 2 puff IH Q4HR PRN 12/31/17 [History] Cefdinir [Omnicef] 300 mg PO BID #25 capsule 02/02/18 [Rx] Nicotine Patch [Nicoderm] 21 mg TD DAILY patch.td24 02/02/18 [Rx] Oxycodone HCl/Acetaminophen [Percocet 5-325 mg Tablet] 1 each PO Q6H PRN 3 Days #10 tablet 02/02/18 [Rx] clonazePAM [Klonopin] 0.5 mg PO BID PRN 7 Days #14 tablet 02/02/18 [Rx] Allergies/Adverse Reactions: 3 Allergy/AdvReac Type Severity Reaction Status Date / Time Amoxicillin Allergy See Verified 01/30/18 21:33 Comments latex Allergy See Verified 01/30/18 21:33 Comments Date of admission: 01/30/18 23:28 Primary care physician: Dodie Mayorga MD Consults: 02/02/18 08:45 Consult to Urology [CONS] Routine Consulting Provider: [facility] Reason for Consult: acute pyelonephritis with abdominal CT possible abscess Call Completed: Yes Discharging clinician: Stephan Win Anticipated date of discharge: 02/02/18 - Constitutional Vitals: Temp Pulse Resp BP Pulse Ox 98.9 F 75 14 120/80 99 02/02/18 15:14 02/02/18 15:14 02/02/18 15:14 02/02/18 15:14 02/02/18 15:14 General appearance: Present: A&O X 3, answers questions appropriately Exam: Gen.: Vitals noted. No acute distress. AAOx3 HEENT: oropharynx clear, Normocephalic, atraumatic Cardiac: RRR, no murmur, +S1/S2 Pulmonary: CTA bilaterally, no wheezes, rales or rhonchi, equal chest expansion Abdomen: soft, minimal suprapubic tender, Bowel sounds noted, no guarding Back: bilateral CVA tender MSK: ROM intact, no joint swelling noted Extremities: no BLE edema, nontender calf, no cyanosis or clubbing Neuro: A&Ox3, moves all extremities, no focal deficits Psych: Appropriate mood and behavior - Patient Status Disposition: Home, Self-Care Condition: Good Functional capacity at discharge: independent ambulation Overall status at discharge: patient is back to baseline - Discharge Instructions Instructions: Asthma (DC), Urinary Tract Infection in Women (DC), Sepsis (DC) Follow Up With: Nicolas Patel MD [Partnered Physician] - (WEB REQUEST ENTERED. OFFICE WILL CALL WITH APPOINTMENT) Dodie Mayorga MD [Primary Care Provider] - 02/08/18 12:40 pm (Please bring your ID, Insurance card and co-pay. Thank you) Additional Instructions: Finish antibiotic to completion take pain medication as needed follow-up with Dr. Patel of urology outpatient in 1 to 2 - Diet and Activity Activity: resume usual activities as tolerated Diet: advance to your usual diet <Stephan Win Gabriel - Last Filed: 02/02/18 17:48> Date of Encounter: 02/02/18 - Discharge Diagnosis (1) Acute pyelonephritis Status: Suspected (2) Sepsis Status: Resolved Qualifiers: Sepsis type: Escherichia coli Qualified Code(s): A41.51 - Sepsis due to Escherichia coli [E. coli] (3) DVT prophylaxis Status: Acute (4) Tobacco abuse Status: Chronic (5) Asthma Status: Chronic Qualifiers: Asthma severity: mild Asthma persistence: intermittent Asthma complication type: unspecified Qualified Code(s): J45.20 - Mild intermittent asthma, uncomplicated (6) Renal abscess, right Priority: Secondary Status: Acute (7) Anxiety and depression Priority: Secondary Status: Chronic Hospital course: Ms. Prather is a 22 year old female - Time Spent with Patient Total time spent providing and/or coordinating discharge services: 40min Date of admission: 01/30/18 23:28 Primary care physician: Dodie Mayorga MD Consults: 02/02/18 08:45 Consult to Urology [CONS] Routine Consulting Provider: [facility] [place] Reason for Consult: acute pyelonephritis with abdominal CT possible abscess Call Completed: Yes - Constitutional Vitals: Temp Pulse Resp BP Pulse Ox 98.9 F 75 14 120/80 99 02/02/18 15:14 02/02/18 15:14 02/02/18 15:14 02/02/18 15:14 02/02/18 15:14 - Attending Attestation I examined this patient and my medical decision-making was reviewed with the Resident Physician on 02/02/18. I agree with the documented findings, disposition and treatment plan as described except to the extent set forth below. Ms Prather has been admitted for acute pyelonephritis and concern for abscess. She has received IV abx and will be on PO. Her pain has improved and she is now afebrile. She is to be discharged home with outpatient follow up. Exam Alert. Tearful Mucus membranes dry Heart reg No wheeze Plan D/C home today Take all of abx Follow up with PCP and urology - need to follow kidney closely
== END 2018-02-02 18:12 | disposition home or self-care (01) | DRG 720 ==
LOC: 3ANU 21:30 → EMEROO 21:30 → SUATTDRO 23:28 → 3ANU 23:32
PROVIDERS: ADMIT Internal Medicine; ATTEND Internal Medicine

== ENCOUNTER 2020-02-28 07:32 | Inpatient (IN) ==
[2020-02-28] MEDS ORDERED: Tdap (Boostrix) Vaccine 0.5 ML SYRINGE IM ONE (07:55)
[2020-02-28] MEDS ORDERED: *HR* LORazepam 1 MG TABLET PO ONE (08:00)
[2020-02-28 08:13] LABS: Basophils # 0.1 K/mcL (0.0-0.2); Basophils % 0.5 %; Eosinophils % 0.3 %; Hematocrit 40.5 % (35.3-44.9); Immature Granulocytes % 0.3 % (0-4); Mean Corpuscular HGB Conc 34.6 g/dL (31.6-35.5); Mean Corpuscular Hemoglobin 32.9 pg (28.0-33.3); Mean Corpuscular Volume 95.3 fL (83.0-100.0); Mean Platelet Volume 9.1 fL (9.4-12.4); Monocytes # 0.6 K/mcL (0.0-1.3); Monocytes % 4.7 %; Neutrophils # 8.2 K/mcL (1.6-8.9); Platelet Count 301 K/mcL (140-400); Red Blood Count 4.25 M/mcL (3.82-4.97); Red Cell Distribution Width 12.6 % (11.5-14.5); Segmented Neutrophils % 69.2 %; White Blood Count 11.8 K/mcL (4.3-11.1)
[2020-02-28] MEDS ORDERED: Lido/Epi/Tetra Gel 2 ML SYRINGE TP STA (08:22)
[2020-02-28 08:29] LABS: Bilirubin,Urine Small (Negative); Blood,Urine Negative (Negative); Clarity,Urine Turbid (Clear); Color,Urine Dark Yellow (Yellow); Glucose,Urine (UA) Normal (Normal); Ketones,Urine Trace mg/dL (Negative); Leukocyte Esterase,Urine Negative (Negative); Nitrite,Urine Negative (Negative); Protein,Urine Trace mg/dL (Neg-Trace); Specific Gravity,Urine 1.028 (1.010-1.025); Urobilinogen,Urine Normal (Normal)
[2020-02-28 08:31] LABS: RBC,Urine 0-3 per hpf (0-3); Squamous Epithelial Cell,Urine Many per lpf (None-Few)
[2020-02-28 08:33] LABS: Acetaminophen < 10 mcg/mL (10-20); BUN/Creatinine Ratio 19 (6-26); Blood Urea Nitrogen 15 mg/dL (6-20); Calcium 9.5 mg/dL (8.6-10.3); Carbon Dioxide 19 mEq/L (23-29); Chloride 106 mEq/L (98-107); Chol/HDL Ratio 5.1 (0-4.9); Cholesterol 182 mg/dL (< 200); Ethanol < 10 mg/dL (Less than 10); Glucose 81 mg/dL (70-105); HDL Cholesterol 36 mg/dL (40-59); LDL Cholesterol,Calculated 124 mg/dL (0-99); Osmolality,Calculated 284 (280-300); Potassium 3.7 mEq/L (3.5-5.1); Salicylate < 2.5 mg/dL (15.0-30.0); Sodium 137 mEq/L (136-145); Triglycerides 108 mg/dL (< 150); eGFR For African Americans > 60 (> 60); eGFR For Non-African Americans > 60 (> 60)
[2020-02-28 08:35] LABS: Amphetamine Screen,Urine Positive ng/mL (Cutoff=1000); Barbiturate Screen,Urine Negative ng/mL (Cutoff=200)
[2020-02-28 08:36] LABS: Benzodiazepines Screen,Urine Positive ng/mL (Cutoff=300)
[2020-02-28 08:37] LABS: Cannabinoid Screen,Urine Positive ng/mL (Cutoff = 50); Cocaine Screen,Urine Positive ng/mL (Cutoff= 300); Opiate Screen,Urine Negative ng/mL (Cutoff=300); Phencyclidine Screen,Urine Negative ng/mL (Cutoff=25)
[2020-02-28 08:47] LABS: Mucus,Urine Few per lpf (Few)
[2020-02-28 08:48] LABS: Granular Casts,Urine Few per lpf (None Seen)
[2020-02-28 08:49] LABS: Amorphous Sediment,Urine Few per hpf (Few); Bacteria,Urine Moderate per hpf (None-Few)
[2020-02-28] MEDS ORDERED: Sulfamethoxazole/Trimeth DS 1 EACH TABLET PO ONE (09:10)
[2020-02-28 09:37] LABS: Estimated Average Glucose 108 mg/dl
[2020-02-28] MEDS ORDERED: *HR* LORazepam 1 MG TABLET PO PRN (18:10)
[2020-02-28] MEDS ORDERED: haloperidoL 5 MG TABLET PO PRN (18:10)
[2020-02-28] MEDS ORDERED: Mag Hydrox/Al Hydrox/Simeth 30 ML UDC PO PRN (18:10)
[2020-02-28] MEDS ORDERED: Haloperidol Lactate 5 MG/ML VIAL IM PRN (18:10)
[2020-02-28] MEDS ORDERED: *HR* LORazepam 2 MG/ML VIAL IM PRN (18:10)
[2020-02-28] MEDS ORDERED: MOM Conc 10 ML UD.LIQ PO PRN (18:10)
[2020-02-28] MEDS ORDERED: Nicotine 2 MG GUM BC PRN (20:27)
[2020-02-28] MEDS: traZODone 50 MG TABLET PO PRN (20:36)
[2020-02-28] MEDS: Acetaminophen 325 MG TABLET PO PRN (20:36)
[2020-02-28] MEDS: hydrOXYzine pamoate 25 MG CAPSULE PO PRN (20:36)
[2020-02-28] MEDS ORDERED: Ibuprofen 400 MG TABLET PO PRN (21:19)
[2020-02-29] MEDS: Nicotine 21 MG PATCH.TD24 TD SCH (10:11)
[2020-02-29] MEDS: Neosporin OINT 15 GM TUBE TP SCH ×2 (10:47→21:21)
[2020-02-29] MEDS: QUEtiapine Fumarate 25 MG TABLET PO SCH ×2 (11:28→21:21)
[2020-02-29] MEDS: hydrOXYzine pamoate 25 MG CAPSULE PO PRN ×2 (12:36→18:26)
[2020-02-29] MEDS: traZODone 50 MG TABLET PO PRN (21:21)
[2020-03-01] MEDS: hydrOXYzine pamoate 25 MG CAPSULE PO PRN ×2 (03:12→21:14)
[2020-03-01] MEDS: Nicotine 21 MG PATCH.TD24 TD SCH (10:09)
[2020-03-01] MEDS: QUEtiapine Fumarate 25 MG TABLET PO SCH (10:10)
[2020-03-01] MEDS: Acetaminophen 325 MG TABLET PO PRN ×2 (11:50→21:14)
[2020-03-01] MEDS: Neosporin OINT 15 GM TUBE TP SCH ×2 (12:14→21:14)
[2020-03-01] MEDS ORDERED: QUEtiapine Fumarate 100 MG TABLET PO SCH (21:00)
[2020-03-01] MEDS: traZODone 50 MG TABLET PO PRN (21:14)
[2020-03-01] MEDS: Benzocaine 20% 12 APPL GEL..GRAM. TP PRN (21:15)
[2020-03-02] MEDS: hydrOXYzine pamoate 25 MG CAPSULE PO PRN (01:34)
[2020-03-02 08:42] VITALS: BP 113/79
[2020-03-02] MEDS ORDERED: QUEtiapine Fumarate 25 MG TABLET PO SCH (09:00)
[2020-03-02] MEDS: Acetaminophen 325 MG TABLET PO PRN (09:17)
[2020-03-02] MEDS: Benzocaine 20% 12 APPL GEL..GRAM. TP PRN (09:19)
[2020-03-02] MEDS: Neosporin OINT 15 GM TUBE TP SCH ×2 (09:19→10:34)
[2020-03-02] MEDS: Nicotine 21 MG PATCH.TD24 TD SCH (09:20)
== END 2020-03-02 11:30 | disposition home or self-care (01) | DRG 885 ==
LOC: EMEROOARM 07:32 → 1ANU 18:02
PROVIDERS: ADMIT Psychiatry & Neurology Psychiatry; ATTEND Psychiatry & Neurology Psychiatry

== ENCOUNTER 2020-07-20 22:11 | Observation (INO) ==
[2020-07-20] MEDS ORDERED: Isovue-370 500 ML BOTTLE IVP ONE (22:29)
[2020-07-20 22:50] LABS: White Blood Count 22.8 K/mcL (4.3-11.1)
[2020-07-20 22:51] LABS: Basophils % 0.1 %; Eosinophils % 0.1 %; Hematocrit 38.5 % (35.3-44.9); Hemoglobin 13.4 g/dL (11.5-15.4); Immature Granulocytes % 0.4 % (0-4); Lymphocytes # 1.7 K/mcL (0.6-4.6); Lymphocytes % 7.4 %; Mean Corpuscular HGB Conc 34.8 g/dL (31.6-35.5); Mean Corpuscular Hemoglobin 33.3 pg (28.0-33.3); Mean Corpuscular Volume 95.5 fL (83.0-100.0); Mean Platelet Volume 8.7 fL (9.4-12.4); Monocytes # 0.8 K/mcL (0.0-1.3); Monocytes % 3.3 %; Neutrophils # 20.2 K/mcL (1.6-8.9); Platelet Count 318 K/mcL (140-400); Red Blood Count 4.03 M/mcL (3.82-4.97); Red Cell Distribution Width 12.8 % (11.5-14.5); Segmented Neutrophils % 88.7 %
[2020-07-20 23:07] LABS: Bacteria,Urine Few per hpf (None-Few); Bilirubin,Urine Negative (Negative); Blood,Urine Negative (Negative); Clarity,Urine Turbid (Clear); Color,Urine Yellow (Yellow); Glucose,Urine (UA) Normal (Normal); Hyaline Casts,Urine Many per lpf (None Seen); Ketones,Urine Negative (Negative); Leukocyte Esterase,Urine Negative (Negative); Mucus,Urine Few per lpf (None-Few); Nitrite,Urine Negative (Negative); PH,Urine 6.5 pH Units (5.0-8.0); Protein,Urine 50 mg/dL (Neg-Trace); RBC,Urine 0-3 per hpf (0-3); Specific Gravity,Urine 1.023 (1.010-1.025); Squamous Epithelial Cell,Urine Moderate per hpf (None-Few); Urobilinogen,Urine Normal (Normal); WBC,Urine 0-3 per hpf (0-3)
[2020-07-20 23:11] LABS: Acetaminophen < 10 mcg/mL (10-20); Alanine Aminotransferase 15 Units/L (7-52); Albumin 4.3 g/dL (3.5-5.7); Albumin/Globulin Ratio 1.6 (1.1-2.2); Alkaline Phosphatase 78 Units/L (34-104); Aspartate Amino Transferase 27 Units/L (13-39); BUN/Creatinine Ratio 15 (6-26); Bilirubin,Direct 0.1 mg/dL (0.0-0.2); Bilirubin,Indirect 0.3 mg/dL (0.0-1.0); Bilirubin,Total 0.4 mg/dL (0.3-1.0); Blood Urea Nitrogen 14 mg/dL (6-20); Calcium 9.4 mg/dL (8.6-10.3); Carbon Dioxide 22 mEq/L (23-29); Chloride 104 mEq/L (98-107); Chol/HDL Ratio 2.9 (0-4.9); Cholesterol 140 mg/dL (< 200); Creatine Kinase 415 Units/L (30-223); Ethanol < 10 mg/dL (Less than 10); Globulin 2.7 g/dL (2.4-3.5); Glucose 128 mg/dL (70-105); HDL Cholesterol 49 mg/dL (40-59); LDL Cholesterol,Calculated 76 mg/dL (< 100); Lipase 11 Units/L (11-82); Osmolality,Calculated 286 (280-300); Sodium 137 mEq/L (136-145); Triglycerides 76 mg/dL (< 150); eGFR For African Americans > 60 (> 60); eGFR For Non-African Americans > 60 (> 60)
[2020-07-20 23:24] LABS: Amphetamine Screen,Urine Positive ng/mL (Cutoff=1000); Barbiturate Screen,Urine Negative ng/mL (Cutoff=200); Benzodiazepines Screen,Urine Negative ng/mL (Cutoff=200); Cannabinoid Screen,Urine Negative ng/mL (Cutoff = 50); Cocaine Screen,Urine Negative ng/mL (Cutoff= 300); Opiate Screen,Urine Positive ng/mL (Cutoff=300); Phencyclidine Screen,Urine Negative ng/mL (Cutoff=25)
[2020-07-20 23:44] LABS: Estimated Average Glucose 105 mg/dl
[2020-07-20] MEDS ORDERED: *HR* LORazepam 2 MG/ML VIAL IVP ONE (23:57)
[2020-07-21 00:22] LABS: INR 1.2; Prothrombin Time 13.6 Seconds (9.4-12.1)
[2020-07-21] MEDS: Acetaminophen 325 MG TABLET PO PRN ×2 (00:25→08:01)
[2020-07-21] MEDS ORDERED: *HR* FentaNYL (PF) 100 MCG/2 ML VIAL IVP ONE ×2 (00:47→03:07)
[2020-07-21] MEDS ORDERED: 0.9 % Sodium Chloride 1,000 ML IVC ONE (02:31)
[2020-07-21] MEDS ORDERED: Naloxone 0.4 MG/ML INJ IVP PRN (04:11)
[2020-07-21] MEDS ORDERED: *HR* HYDROmorphone (PF) 1 MG/ML SYRINGE IVP ONE (04:21)
[2020-07-21] MEDS ORDERED: Haloperidol Lactate 5 MG/ML VIAL IM ONE (04:57)
[2020-07-21] MEDS ORDERED: Haloperidol Lactate 5 MG/ML VIAL IVP ONE (05:28)
[2020-07-21 08:49] LABS: Basophils % 0.1 %; Eosinophils # 0.1 K/mcL (0.0-0.6); Eosinophils % 0.5 %; Hematocrit 38.3 % (35.3-44.9); Hemoglobin 12.9 g/dL (11.5-15.4); Immature Granulocytes % 0.4 % (0-4); Lymphocytes % 17.9 %; Mean Corpuscular HGB Conc 33.7 g/dL (31.6-35.5); Mean Corpuscular Hemoglobin 32.3 pg (28.0-33.3); Mean Platelet Volume 8.5 fL (9.4-12.4); Monocytes # 0.9 K/mcL (0.0-1.3); Monocytes % 5.5 %; Neutrophils # 12.6 K/mcL (1.6-8.9); Platelet Count 308 K/mcL (140-400); Red Blood Count 3.99 M/mcL (3.82-4.97); Red Cell Distribution Width 13.1 % (11.5-14.5); Segmented Neutrophils % 75.6 %; White Blood Count 16.7 K/mcL (4.3-11.1)
[2020-07-21] MEDS ORDERED: Ketorolac 15 MG/ML VIAL IVP ONE (08:59)
[2020-07-21 09:08] LABS: BUN/Creatinine Ratio 20 (6-26); Blood Urea Nitrogen 11 mg/dL (6-20); Calcium 8.5 mg/dL (8.6-10.3); Carbon Dioxide 23 mEq/L (23-29); Chloride 103 mEq/L (98-107); Glucose 103 mg/dL (70-105); Osmolality,Calculated 280 (280-300); Potassium 3.6 mEq/L (3.5-5.1); Sodium 135 mEq/L (136-145); eGFR For African Americans > 60 (> 60); eGFR For Non-African Americans > 60 (> 60)
[2020-07-21] MEDS ORDERED: Isovue-370 500 ML BOTTLE IVP ONE (09:55)
[2020-07-21] MEDS: 0.9 % Sodium Chloride 1,000 ML IVC SCH ×2 (12:30→16:23)
[2020-07-21] MEDS: *HR* Heparin 5,000 UNIT/ML VIAL SQ SCH (16:24)
[2020-07-22 02:28] LABS: Basophils % 0.1 %; Eosinophils # 0.1 K/mcL (0.0-0.6); Eosinophils % 1.1 %; Hematocrit 36.4 % (35.3-44.9); Hemoglobin 12.5 g/dL (11.5-15.4); Immature Granulocytes % 0.2 % (0-4); Lymphocytes # 2.8 K/mcL (0.6-4.6); Lymphocytes % 27.6 %; Mean Corpuscular HGB Conc 34.3 g/dL (31.6-35.5); Mean Corpuscular Hemoglobin 33.7 pg (28.0-33.3); Mean Corpuscular Volume 98.1 fL (83.0-100.0); Monocytes # 0.9 K/mcL (0.0-1.3); Monocytes % 8.3 %; Neutrophils # 6.4 K/mcL (1.6-8.9); Platelet Count 283 K/mcL (140-400); Red Blood Count 3.71 M/mcL (3.82-4.97); Red Cell Distribution Width 13.3 % (11.5-14.5); Segmented Neutrophils % 62.7 %; White Blood Count 10.3 K/mcL (4.3-11.1)
[2020-07-22 02:53] LABS: BUN/Creatinine Ratio 19 (6-26); Blood Urea Nitrogen 12 mg/dL (6-20); Carbon Dioxide 25 mEq/L (23-29); Chloride 103 mEq/L (98-107); Glucose 95 mg/dL (70-105); Osmolality,Calculated 284 (280-300); Potassium 3.4 mEq/L (3.5-5.1); Sodium 137 mEq/L (136-145); eGFR For African Americans > 60 (> 60); eGFR For Non-African Americans > 60 (> 60)
[2020-07-22] MEDS ORDERED: *HR* LORazepam 2 MG/ML VIAL IVP ONE (03:11)
[2020-07-22] MEDS: *HR* Heparin 5,000 UNIT/ML VIAL SQ SCH ×2 (05:03→19:09)
[2020-07-22] MEDS ORDERED: *HR* LORazepam 0.5 MG TABLET PO PRN ×2 (08:59→19:16)
[2020-07-22] MEDS ORDERED: *HR* Midazolam HCl 2 MG/2 ML VIAL ONE (15:32)
[2020-07-22] MEDS ORDERED: *HR* FentaNYL (PF) 100 MCG/2 ML VIAL ONE (15:32)
[2020-07-22] MEDS ORDERED: Ropivacaine/PF 0.5% 30 ML VIAL ONE (15:33)
[2020-07-22] MEDS ORDERED: Lidocaine/EPI 1:100k 1% 20 ML VIAL ONE (15:47)
[2020-07-22] MEDS ORDERED: Clindamycin 600 MG/50 ML 600 MG/50 ML IV.SOLN IVPB SCH ×2 (16:00→19:15)
[2020-07-22] MEDS ORDERED: Lidocaine -MPF 2% 2 ML VIAL ONE (16:09)
[2020-07-22] MEDS ORDERED: *HR* Propofol 200 MG/20 ML VIAL IVP ONE (16:09)
[2020-07-22] MEDS ORDERED: *HR* PHENYLEPHRINE 1,000 MCG/10 ML SYRINGE IVP ONE (16:18)
[2020-07-22] MEDS ORDERED: Ondansetron 4 MG/2 ML VIAL ONE (16:28)
[2020-07-22] MEDS ORDERED: Dexamethasone 4 MG/ML VIAL ONE (16:28)
[2020-07-22] MEDS ORDERED: Naloxone 0.4 MG/ML INJ IVP PRN (19:16)
[2020-07-22] MEDS ORDERED: Acetaminophen 325 MG TABLET PO PRN (19:16)
[2020-07-23] MEDS ORDERED: Clindamycin 600 MG/50 ML 600 MG/50 ML IV.SOLN IVPB SCH
[2020-07-23] MEDS ORDERED: *HR* LORazepam 2 MG/ML VIAL IVP ONE (02:35)
[2020-07-23 05:24] LABS: Basophils % 0.1 %; Hematocrit 35.7 % (35.3-44.9); Hemoglobin 11.9 g/dL (11.5-15.4); Immature Granulocytes % 0.5 % (0-4); Lymphocytes # 1.2 K/mcL (0.6-4.6); Lymphocytes % 8.2 %; Mean Corpuscular HGB Conc 33.3 g/dL (31.6-35.5); Mean Corpuscular Hemoglobin 32.5 pg (28.0-33.3); Mean Corpuscular Volume 97.5 fL (83.0-100.0); Mean Platelet Volume 8.6 fL (9.4-12.4); Monocytes # 0.7 K/mcL (0.0-1.3); Monocytes % 5.1 %; Neutrophils # 12.1 K/mcL (1.6-8.9); Platelet Count 267 K/mcL (140-400); Red Blood Count 3.66 M/mcL (3.82-4.97); Red Cell Distribution Width 12.8 % (11.5-14.5); Segmented Neutrophils % 86.1 %; White Blood Count 14.1 K/mcL (4.3-11.1)
[2020-07-23] MEDS ORDERED: *HR* Heparin 5,000 UNIT/ML VIAL SQ SCH (06:00)
[2020-07-23 07:45] LABS: BUN/Creatinine Ratio 28 (6-26); Blood Urea Nitrogen 16 mg/dL (6-20); Calcium 8.8 mg/dL (8.6-10.3); Carbon Dioxide 27 mEq/L (23-29); Chloride 103 mEq/L (98-107); Glucose 134 mg/dL (70-105); Osmolality,Calculated 285 (280-300); Potassium 4.3 mEq/L (3.5-5.1); Sodium 136 mEq/L (136-145); eGFR For African Americans > 60 (> 60); eGFR For Non-African Americans > 60 (> 60)
[2020-07-23] MEDS ORDERED: Acetaminophen IV 1,000 MG/100 ML INFUS..BTL IVPB ONE (09:18)
[2020-07-23 10:33] VITALS: BP 134/75
== END 2020-07-23 15:33 | disposition home or self-care (01) ==
LOC: EMEROOARM 22:11 → 3NENU 22:11 → SUATTDRO 07-21 04:21 → 3NENU 07-21 04:53
PROVIDERS: ADMIT Family Medicine; ATTEND Family Medicine

== ENCOUNTER 2020-08-21 08:50 | Inpatient (IN) ==
[2020-08-21] MEDS ORDERED: *HR* LORazepam 2 MG/ML VIAL ONE (08:54)
[2020-08-21] MEDS ORDERED: Haloperidol Lactate 5 MG/ML VIAL IM ONE (08:55)
[2020-08-21] MEDS ORDERED: *HR* LORazepam 2 MG/ML VIAL IM ONE (09:03)
[2020-08-21] MEDS ORDERED: 0.9 % Sodium Chloride 1,000 ML IVC ONE ×2 (09:20→11:51)
[2020-08-21 09:39] LABS: Basophils % 0.2 %; Eosinophils % 0.1 %; Hematocrit 40.2 % (35.3-44.9); Hemoglobin 13.9 g/dL (11.5-15.4); Immature Granulocytes % 0.4 % (0-4); Lymphocytes # 1.2 K/mcL (0.6-4.6); Mean Corpuscular HGB Conc 34.6 g/dL (31.6-35.5); Mean Corpuscular Hemoglobin 33.2 pg (28.0-33.3); Mean Corpuscular Volume 95.9 fL (83.0-100.0); Monocytes # 0.5 K/mcL (0.0-1.3); Monocytes % 2.3 %; Neutrophils # 18.5 K/mcL (1.6-8.9); Platelet Count 369 K/mcL (140-400); Red Blood Count 4.19 M/mcL (3.82-4.97); Red Cell Distribution Width 11.9 % (11.5-14.5); White Blood Count 20.4 K/mcL (4.3-11.1)
[2020-08-21 09:51] LABS: Bacteria,Urine Moderate per hpf (None-Few); Bilirubin,Urine Negative (Negative); Blood,Urine Trace (Negative); Clarity,Urine Turbid (Clear); Color,Urine Yellow (Yellow); Glucose,Urine (UA) Normal (Normal); Ketones,Urine Negative (Negative); Leukocyte Esterase,Urine Large (Negative); Mucus,Urine Many per lpf (None-Few); Nitrite,Urine Positive (Negative); PH,Urine 6.5 pH Units (5.0-8.0); Protein,Urine 30 mg/dL (Neg-Trace); RBC,Urine 0-3 per hpf (0-3); Renal Epithelial Cells,Urine Few per hpf (None-Few); Specific Gravity,Urine 1.028 (1.010-1.025); Squamous Epithelial Cell,Urine Few per hpf (None-Few); Transitional Epi Cells,Urine Few per hpf (None-Few); WBC,Urine 50-100 per hpf (0-3)
[2020-08-21 09:53] LABS: Amphetamine Screen,Urine Positive ng/mL (Cutoff=1000); Barbiturate Screen,Urine Negative ng/mL (Cutoff=200); Benzodiazepines Screen,Urine Negative ng/mL (Cutoff=200); Cannabinoid Screen,Urine Negative ng/mL (Cutoff = 50); Cocaine Screen,Urine Negative ng/mL (Cutoff= 300); Opiate Screen,Urine Positive ng/mL (Cutoff=300); Phencyclidine Screen,Urine Negative ng/mL (Cutoff=25)
[2020-08-21] MEDS ORDERED: cefTRIAXone 1,000 MG in Water for inj. (sterile) 10 ML IVP ONE (09:53)
[2020-08-21 09:57] LABS: Acetaminophen < 10 mcg/mL (10-20); Alanine Aminotransferase 15 Units/L (7-52); Albumin 4.7 g/dL (3.5-5.7); Albumin/Globulin Ratio 1.7 (1.1-2.2); Alkaline Phosphatase 81 Units/L (34-104); Aspartate Amino Transferase 31 Units/L (13-39); BUN/Creatinine Ratio 14 (6-26); Bilirubin,Direct 0.1 mg/dL (0.0-0.2); Bilirubin,Indirect 0.5 mg/dL (0.0-1.0); Bilirubin,Total 0.6 mg/dL (0.3-1.0); Blood Urea Nitrogen 17 mg/dL (6-20); Calcium 9.5 mg/dL (8.6-10.3); Carbon Dioxide 18 mEq/L (23-29); Chloride 103 mEq/L (98-107); Chol/HDL Ratio 3.5 (0-4.9); Cholesterol 165 mg/dL (< 200); Creatine Kinase 708 Units/L (30-223); Ethanol < 10 mg/dL (Less than 10); Globulin 2.8 g/dL (2.4-3.5); Glucose 197 mg/dL (70-105); HDL Cholesterol 47 mg/dL (40-59); LDL Cholesterol,Calculated 103 mg/dL (< 100); Osmolality,Calculated 297 (280-300); Potassium 3.2 mEq/L (3.5-5.1); Salicylate < 2.5 mg/dL (15.0-30.0); Sodium 140 mEq/L (136-145); Total Protein 7.5 g/dL (6.4-8.9); Triglycerides 75 mg/dL (< 150); eGFR For African Americans > 60 (> 60); eGFR For Non-African Americans 54 (> 60)
[2020-08-21 10:09] LABS: Thyroid Stimulating Hormone 3.944 mcIU/mL (0.340-5.600)
[2020-08-21 10:45] LABS: Estimated Average Glucose 103 mg/dl
[2020-08-21] MEDS ORDERED: Naloxone 0.4 MG/ML INJ IVP PRN (12:59)
[2020-08-21] MEDS ORDERED: *HR* Dextrose 50 % in Water (Vial) 50 ML VIAL IVP PRN (13:05)
[2020-08-21] MEDS ORDERED: Dextrose Gel 15 GM/37.5 ML TUBE PO PRN ×2 (13:05)
[2020-08-21] MEDS ORDERED: D5% in Water 1,000 ML IVC PRN (13:05)
[2020-08-21] MEDS ORDERED: Potassium Chloride 20 MEQ, Lidocaine 1% 2 ML in 0.9 % Sodium Chloride 250 ML IVPB ONE (13:06)
[2020-08-21] MEDS ORDERED: *HR* LORazepam 2 MG/ML VIAL IVP PRN ×3 (13:44)
[2020-08-21] MEDS: *HR* Heparin 5,000 UNIT/ML VIAL SQ SCH ×2 (14:52→20:27)
[2020-08-22] MEDS: *HR* Heparin 5,000 UNIT/ML VIAL SQ SCH ×3 (05:11→23:22)
[2020-08-22] MEDS ORDERED: 0.9 % Sodium Chloride 1,000 ML IVC SCH (07:30)
[2020-08-22 08:38] LABS: Hematocrit 36.7 % (35.3-44.9); Mean Corpuscular HGB Conc 33.5 g/dL (31.6-35.5); Mean Corpuscular Hemoglobin 33.3 pg (28.0-33.3); Mean Corpuscular Volume 99.5 fL (83.0-100.0); Mean Platelet Volume 9.1 fL (9.4-12.4); Platelet Count 266 K/mcL (140-400); Red Blood Count 3.69 M/mcL (3.82-4.97); Red Cell Distribution Width 12.2 % (11.5-14.5); White Blood Count 10.8 K/mcL (4.3-11.1)
[2020-08-22 08:45] LABS: Hemoglobin 12.3 g/dL (11.5-15.4)
[2020-08-22 09:15] LABS: BUN/Creatinine Ratio 20 (6-26); Blood Urea Nitrogen 12 mg/dL (6-20); Calcium 8.3 mg/dL (8.6-10.3); Carbon Dioxide 25 mEq/L (23-29); Chloride 104 mEq/L (98-107); Creatine Kinase 2558 Units/L (30-223); Glucose 112 mg/dL (70-105); Magnesium 1.9 mg/dL (1.6-2.6); Osmolality,Calculated 283 (280-300); Phosphorous 3.5 mg/dL (2.7-4.5); Potassium 3.5 mEq/L (3.5-5.1); Sodium 136 mEq/L (136-145); eGFR For African Americans > 60 (> 60); eGFR For Non-African Americans > 60 (> 60)
[2020-08-22] MEDS: cefTRIAXone 1,000 MG in 0.9 % Sodium Chloride Mini Bag 100 ML IVPB SCH (10:08)
[2020-08-22] MEDS: 0.9 % Sodium Chloride 1,000 ML IVC SCH ×4 (10:21→23:24)
[2020-08-22] MEDS: Acetaminophen 325 MG TABLET PO PRN (14:36)
[2020-08-23] MEDS: *HR* Heparin 5,000 UNIT/ML VIAL SQ SCH ×3 (05:04→21:09)
[2020-08-23] MEDS: Acetaminophen 325 MG TABLET PO PRN ×2 (07:24→21:10)
[2020-08-23 09:20] LABS: Hematocrit 35.7 % (35.3-44.9); Hemoglobin 11.6 g/dL (11.5-15.4); Mean Corpuscular HGB Conc 32.5 g/dL (31.6-35.5); Mean Corpuscular Hemoglobin 32.6 pg (28.0-33.3); Mean Corpuscular Volume 100.3 fL (83.0-100.0); Platelet Count 257 K/mcL (140-400); Red Blood Count 3.56 M/mcL (3.82-4.97); Red Cell Distribution Width 11.9 % (11.5-14.5); White Blood Count 6.4 K/mcL (4.3-11.1)
[2020-08-23 09:39] LABS: BUN/Creatinine Ratio 15 (6-26); Blood Urea Nitrogen 8 mg/dL (6-20); Calcium 8.2 mg/dL (8.6-10.3); Carbon Dioxide 22 mEq/L (23-29); Chloride 109 mEq/L (98-107); Creatine Kinase 1666 Units/L (30-223); Glucose 103 mg/dL (70-105); Osmolality,Calculated 281 (280-300); Sodium 136 mEq/L (136-145); eGFR For African Americans > 60 (> 60); eGFR For Non-African Americans > 60 (> 60)
[2020-08-23] MEDS: Ketorolac 15 MG/ML VIAL IVP PRN ×2 (10:02→16:09)
[2020-08-23] MEDS: Ondansetron 4 MG/2 ML VIAL IVP PRN ×3 (10:02→21:09)
[2020-08-23] MEDS: cefTRIAXone 1,000 MG in 0.9 % Sodium Chloride Mini Bag 100 ML IVPB SCH (10:03)
[2020-08-23] MEDS: 0.9 % Sodium Chloride 1,000 ML IVC SCH ×2 (10:04→21:10)
[2020-08-23] MEDS ORDERED: Melatonin 3 MG TABLET PO SCH (21:30)
[2020-08-24] MEDS: *HR* Heparin 5,000 UNIT/ML VIAL SQ SCH (05:58)
[2020-08-24] MEDS: 0.9 % Sodium Chloride 1,000 ML IVC SCH (05:59)
[2020-08-24 06:38] VITALS: BP 120/80
[2020-08-24] MEDS: cefTRIAXone 1,000 MG in 0.9 % Sodium Chloride Mini Bag 100 ML IVPB SCH (09:04)
[2020-08-24] MEDS: Ketorolac 15 MG/ML VIAL IVP PRN (09:04)
== END 2020-08-24 10:35 | disposition home or self-care (01) | DRG 720 ==
LOC: EMEROOARM 08:50 → 3ANU 08:50
PROVIDERS: ADMIT Student in an Organized Health Care Education/Training Program; ATTEND Student in an Organized Health Care Education/Training Program